=== PATIENT | male | born 1995 | race Caucasian/White ===

== ENCOUNTER 2020-07-23 13:41 | Outpatient (CLI) | payer OTHER, SELFPAY ==
[2020-07-23 14:15] LABS: Basophils Percent Auto 0.4 % (0.2-1.2); Eosinophils Absolute Auto 0.3 K/mm3 (0-0.3); Eosinophils Percent Auto 4.4 % (0-4.4); Hematocrit 44.2 % (42.0-52.0); Hemoglobin 15.2 g/dL (14.0-18.0); Immature Granulocyte Absolute 0.02 K/mm3 (0.00-0.031); Immature Granulocyte Percent A 0.3 % (0-0.5); Lymphocytes Absolute Auto 1.51 K/mm3 (0.9-3.2); Lymphocytes Percent Auto 22.1 % (18.3-44.2); Mean Corpuscular HGB Conc 34.4 g/dl (32-36); Mean Corpuscular Hemoglobin 30.2 pg (26-34); Mean Corpuscular Volume 87.7 fl (80-100); Mean Platelet Volume 10.2 fl (7.4-10.4); Monocytes Absolute Auto 0.3 K/mm3 (0.1-0.6); Neutrophils Absolute Auto 4.6 K/mm3 (1.3-6.7); Neutrophils Percent Auto 67.8 % (45.5-73.1); Platelet Count Result 168 k/mm3 (150-375); Red Blood Count 5.04 M/mm3 (4.6-6.20); Red Cell Distribution Width 12.2 % (11.5-14.5); White Blood Count 6.8 K/mm3 (4.5-10.0)
[2020-07-23 14:27] LABS: Alanine Aminotransferase 23 U/L (4-50); Albumin Level 4.7 g/dL (3.5-5.1); Alkaline Phosphatase 42 U/L (38-126); Anion Gap 6 mmol/L (8-16); Aspartate Amino Transferase 21 U/L (17-59); Bilirubin,Total 1.1 mg/dL (0.2-1.3); Blood Urea Nitrogen 13 mg/dL (9-20); Calcium 9.2 mg/dL (8.4-10.2); Carbon Dioxide 29 mmol/L (22-30); Chloride 104 mmol/L (98-107); Cholesterol 143 mg/dL (0-200); Estimated Glomerular Filt Rate > 60; Glucose 91 mg/dL (75-110); HDL Direct 42 mg/dL; Potassium 3.7 mmol/L (3.4-5.0); Sodium 139 mmol/L (137-145); Triglycerides 69 mg/dL (<150)
[2020-07-23 14:57] LABS: Prostate Specific Antigen 0.4 ng/mL (< OR = 4.0)
[2020-07-23 15:11] LABS: LDL Cholesterol Direct 91 mg/dL
[2020-07-23 16:17] LABS: Free T4 Free Thyroxine 0.99 ng/mL (0.78-2.19)
[2020-07-23 16:43] LABS: Vitamin D 25 Hydroxy < 12.8 ng/mL
[2020-07-27 07:23] LABS: Triiodothyronine T3 Free 3.4 pg/mL (2.3-4.2)
== END 2020-07-23 13:42 | disposition home or self-care (01) ==
PROVIDERS: PCP Family Medicine; Visit Provider Nurse Practitioner Family
DX: Z00.00 Encounter for general adult medical examination without abnormal findings (principal); F41.9 Anxiety disorder, unspecified
CPT/HCPCS: 36415; 80053; 80061; 82306; 84153; 84439; 84443; 84481; 85025

== ENCOUNTER 2021-01-14 14:30 | Emergency (ER) | payer OTHER, SELFPAY ==
--- NOTE | 2021-01-14 14:35 | ED.GENADULT ---
HPI - General Adult General Chief complaint: Chest Pain Stated complaint: Chest Pain,Headache,Diarrhea Time Seen by Provider: 01/14/21 14:35 Source: patient, RN notes reviewed and old records reviewed (lab) Mode of arrival: ambulatory Limitations: no limitations History of Present Illness HPI narrative: 25 yo male presents to the ER with complaints of diarrhea, headache and chest pain. Reports left-sided chest pain that radiates into the left scapular area. Has had nausea, vomiting and diarrhea for the last 3 days. Vomiting a couple times today. Last diarrheal episode was yesterday. Reports a generalized headache. States that he called his PCM and was told to go to the emergency room Onset (ago): day(s) Related Data Home Medications Medication Instructions Recorded Confirmed No Home Medications 01/14/21 01/14/21 Allergies Allergy/AdvReac Type Severity Reaction Status Date / Time No Known Allergies Allergy Verified 01/14/21 15:01 Review of Systems Review of Systems: All systems reviewed & are unremarkable except as noted in HPI and below Constitutional: Constitutional: Reports as per HPI, Denies fever(s) and Reports headache(s) Eyes: Eyes: Reports no additional eye complaints ENT: Reports system reviewed and no additional complaints, except as documented Cardiovascular: Cardiovascular: Reports as per HPI, Reports chest pain, Reports chest pain at rest, Reports chest pain with activity, Reports rapid heart rate and Denies dyspnea Respiratory: Respiratory: Reports no additional respiratory complaints Gastrointestinal: Gastrointestinal: Reports as per HPI, Denies abdominal pain and Reports vomiting Comments: Diarrhea Genitourinary: Genitourinary: Reports no additional male genitourinary complaints Musculoskeletal: Musculoskeletal: Reports no additional musculoskeletal complaints Integumentary/Breasts: Skin/Breast: Reports system reviewed and no additional complaints, except as docu Neurologic: Reports system reviewed and no additional complaints, except as documented Psychiatric: Psychiatric: Reports no additional psychiatric complaints Allergic/Immunologic: Allergic/Immunologic: Reports no additional allergic/immunologic complaints [facility] Past Medical History Medical History (Updated 01/14/21 @ 15:14 by Zuri Strange) Anxiety Surgical History Surgical History (Updated 01/14/21 @ 14:56 by Zuri Strange) Hx of appendectomy 2012 Social History Social History (Updated 01/14/21 @ 14:56 by Zuri Strange) Substance use: current Substance use type: marijuana Gender identity (if verbalized by the patient): Male Comments At the time of my signature, I reviewed and agree with the nursing past medical, surgical, social, and family history. There is no relevant family history pertinent to the patient complaint. Exam Const: General: cooperative, well developed, alert, anxious and uncomfortable Nutritional Appearance: average body habitus Orientation/consciousness: patient oriented x3 Limitations: no limitations HENMT: Head: normal to inspection General nose exam: Normal external nose present Mouth: Yes other (Dry lips) Eyes: General: appearance normal, both eyes and all related structures Neck: Neck: normal visual inspection, full ROM, no lymphadenopathy, no meningeal signs and trachea midline Chest: Chest palpation & inspection: normal inspection of the chest Resp: Effort & Inspection: normal respiratory effort, able to speak in complete sentences and no audible wheezes Cardio: Rate: tachycardic Rhythm: regular rhythm GI: Inspection: normal to inspection GI Palp: No abdominal tenderness Back/Spine/Pelvis: Back: no CVA tenderness Skin: General skin exam: no rashes or lesions noted, dry skin, no erythema and pallor Neuro: General: patient oriented x3 Extrem: General: normal to inspection, full ROM and capillary refill normal Psych: Appearance: grossly normal Mental
[2021-01-14 14:39] VITALS: BP 144/96; PULSE 99; RESP 20; TEMP 37.7; O2SAT 99
--- NOTE | 2021-01-14 15:00 | ECG_ITS ---
Measurements Intervals [place] Rate: 128 P: 76 NH: 129 QRS: 83 QRSD: 93 T: 16 QT: 334 QTc: 488 Interpretive Statements SINUS TACHYCARDIA MINIMAL Q WAVES- ANTEROLAT/INF LEADS BORDERLINE ST ABNORMALITY ANTEROLAT/INF LEADS ABNORMAL ECG Electronically Signed On 01-14-2021 15:02:32 CDT by Shay Wood D.O.
== END 2021-01-14 14:57 | disposition short-term general hospital (02) ==
LOC: EXPTROY 14:33
PROVIDERS: Emergency Provider Nurse Practitioner; PCP Family Medicine
DX: R00.0 Tachycardia, unspecified (principal); R07.9 Chest pain, unspecified
CPT/HCPCS: 93005; 99213; G0463

== ENCOUNTER 2021-01-14 15:12 | Emergency (ER) | payer OTHER, SELFPAY ==
--- NOTE | ~2021-01-14 | XR_ITS ---
EXAMINATION: XR chest 2V 01/14/2021 15:59 INDICATION: Midsternal chest pain, nausea, vomiting and diarrhea. PROCEDURE: 2 view chest COMPARISON: No prior studies for comparison. FINDINGS: The lungs are clear. The cardiomediastinal silhouette is within normal limits. There are no pleural effusions. There is no pneumothorax suspected. IMPRESSION: 1: NO ACUTE CARDIOPULMONARY DISEASE. Reviewed, dictated and finalized at location B.
[2021-01-14 15:38] VITALS: BP 141/105; PULSE 127; RESP 18; TEMP 37; O2SAT 100
--- NOTE | 2021-01-14 15:42 | ECG_ITS ---
Measurements Intervals [employer] Rate: 108 P: CO: 0 QRS: 77 QRSD: 90 T: 24 QT: 374 QTc: 502 Interpretive Statements SINUS TACHYCARDIA NONCONDUCTED PREMATURE ATRIAL COMPLEX MINIMAL Q WAVES- INF/LAT LEADS BORDERLINE ST ABNORMALITY- ANTEROLAT/INF LEADS ABNORMAL ECG Electronically Signed On 01-14-2021 16:10:40 CDT by Shay Wood D.O.
[2021-01-14 16:00] LABS: Basophils Absolute Auto 0.1 K/mm3 (0.0-0.1); Basophils Percent Auto 0.5 % (0.2-1.2); Eosinophils Absolute Auto 0.1 K/mm3 (0-0.3); Eosinophils Percent Auto 1.5 % (0-4.4); Hematocrit 43.5 % (42.0-52.0); Hemoglobin 15.7 g/dL (14.0-18.0); Immature Granulocyte Absolute 0.04 K/mm3 (0.00-0.031); Immature Granulocyte Percent A 0.4 % (0-0.5); Lymphocytes Absolute Auto 1.41 K/mm3 (0.9-3.2); Lymphocytes Percent Auto 14.7 % (18.3-44.2); Mean Corpuscular HGB Conc 36.1 g/dl (32-36); Mean Corpuscular Hemoglobin 30.6 pg (26-34); Mean Corpuscular Volume 84.8 fl (80-100); Mean Platelet Volume 10.1 fl (7.4-10.4); Monocytes Absolute Auto 0.6 K/mm3 (0.1-0.6); Monocytes Percent Auto 5.9 % (2.6-8.5); Neutrophils Absolute Auto 7.4 K/mm3 (1.3-6.7); Platelet Count Result 219 k/mm3 (150-375); Red Blood Count 5.13 M/mm3 (4.6-6.20); Red Cell Distribution Width 11.9 % (11.5-14.5); White Blood Count 9.6 K/mm3 (4.5-10.0)
[2021-01-14 16:11] LABS: Anion Gap 16 mmol/L (8-16); Blood Urea Nitrogen 15 mg/dL (9-20); Calcium 9.7 mg/dL (8.4-10.2); Carbon Dioxide 24 mmol/L (22-30); Chloride 101 mmol/L (98-107); Estimated CRCL calculation 101 ml/min; Estimated Glomerular Filt Rate > 60; Glucose 138 mg/dL (65-110); Potassium 3.3 mmol/L (3.4-5.0); Sodium 141 mmol/L (137-145)
--- NOTE | 2021-01-14 16:11 | ED.CHESTPAIN ---
HPI - Chest Pain General Chief Complaint: Chest Pain Stated Complaint: anxiety/n/v Time Seen by Provider: 01/14/21 15:48 Source: patient Mode of arrival: ambulatory Limitations: no limitations History of Present Illness HPI narrative: Patient is a 25-year-old male complaining of it is my anxiety I know described as chest pain, midsternal, sharp, 8 out of 10, accompanied by nausea and tingling of both hands x2 days. Patient states that he has been feeling anxious for the past few days. Patient denies any shortness of breath, abdominal pain, diaphoresis, fever or chills. Related Data Home Medications Medication Instructions Recorded Confirmed No Home Medications 01/14/21 01/14/21 Allergies Allergy/AdvReac Type Severity Reaction Status Date / Time No Known Allergies Allergy Verified 01/14/21 15:01 Review of Systems Review of Systems: All systems reviewed & are unremarkable except as noted in HPI and below Constitutional: Constitutional: Denies body ache(s), Denies chills, Denies excessive sweating, Denies fatigue, Denies fever(s), Denies headache(s), Denies lethargy, Denies malaise, Denies weakness and Denies weight loss Eyes: Eyes: Denies blurry vision, Denies change in vision and Denies loss of vision ENT: Denies dizziness, Denies ear discharge, Denies headache(s), Denies lip swelling, Denies epistaxis, Denies nasal congestion, Denies neck pain, Denies throat swelling and Denies tongue swelling Cardiovascular: Cardiovascular: Denies diaphoresis, Denies rapid heart rate, Denies edema, Denies irregular heart rhythm, Denies lightheadedness, Denies palpitations, Denies dyspnea and Denies dyspnea on exertion Respiratory: Respiratory: Denies chest congestion, Denies cough, Denies hemoptysis, Denies dyspnea and Denies dyspnea on exertion Gastrointestinal: Gastrointestinal: Denies abdominal pain, Denies melena, Denies hematochezia, Denies diarrhea, Denies nausea, Denies vomiting and Denies hematemesis Musculoskeletal: Musculoskeletal: Denies abnormal gait, Denies deformity, Denies joint swelling, Denies limited range of motion, Denies neck pain and Denies numbness Neurologic: Denies Abnormal speech present, Denies abnormal gait, Denies confusion, Denies dizziness, Denies headache(s), Denies focal weakness, Denies loss of vision, Denies numbness, Denies Other visual disturbances, Denies Sensory deficit (Neuro) and Denies weakness Psychiatric: Psychiatric: Denies confusion, Denies depression, Denies auditory hallucinations, Denies homicidal ideation and Denies suicidal ideation Endocrine: Endocrine: Denies cold intolerance, Denies excessive sweating, Denies fatigue, Denies heat intolerance and Denies palpitations Hematologic/Lymphatic: Hematologic/Lymphatic: Denies easy bleeding and Denies easy bruising Allergic/Immunologic: Allergic/Immunologic: Denies lip swelling, Denies throat swelling and Denies tongue swelling PMFSH Past Medical History Medical History Anxiety Surgical History Surgical History Hx of appendectomy 2012 Social History Social History Substance use: current Substance use type: marijuana Gender identity (if verbalized by the patient): Male Exam Const: General: cooperative, healthy appearing, comfortable, no acute distress, well developed, alert, awake and anxious; No confusion Orientation/consciousness: oriented to person, oriented to place, oriented to time, patient oriented x3 and No confusion Limitations: no limitations HENMT: Head: normal to inspection, normocephalic and atraumatic Ears: hearing grossly normal bilaterally, TM normal on the right and TM normal on the left General nose exam: Normal external nose present, Normal nares present and No nasal discharge present Face and sinus: normal facial exam Mouth: Yes Norm
[2021-01-14] MEDS: ASPIRIN 81 MG CHEWABLE TABLET 324 MG PO (16:15)
[2021-01-14 16:23] LABS: Troponin I < 0.012 ng/mL (0.000-0.034)
[2021-01-14 16:37] LABS: INR 1.2; Prothrombin Time 15.1 Seconds (11.1-14.7)
[2021-01-14] MEDS: SODIUM CHLORIDE 0.9% IV 1,000 ML 999 ML IV CONT (17:00)
[2021-01-14] MEDS: LORazepam (*CRX) 1 MG TABLET PO (17:01)
[2021-01-14 17:19] VITALS: BP 158/86; PULSE 90; RESP 18; O2SAT 97
[2021-01-14 17:26] LABS: D Dimer 0.27 ug/mL (<0.48)
[2021-01-14] MEDS: POTASSIUM CHLORIDE 20 MEQ PACKET (FOR LIQUID) PO (18:19)
[2021-01-14 18:24] VITALS: BP 145/86; PULSE 98; RESP 16; O2SAT 100
== END 2021-01-14 18:25 | disposition home or self-care (01) ==
PROVIDERS: Emergency Provider Emergency Medicine; PCP Family Medicine
DX: R07.89 Other chest pain (principal); F41.9 Anxiety disorder, unspecified; R00.0 Tachycardia, unspecified; I49.1 Atrial premature depolarization; R94.31 Abnormal electrocardiogram [ECG] [EKG]
CPT/HCPCS: 36415; 71046; 80048; 84484; 85025; 85380; 85610; 85730; 93005; 96360; 99213; 99284; A9270; G0463; J7030

== ENCOUNTER 2021-01-16 14:38 | Emergency (ER) | payer OTHER, SELFPAY ==
[2021-01-16 14:44] VITALS: BP 150/91; PULSE 115; RESP 18; TEMP 37.1; O2SAT 98
--- NOTE | 2021-01-16 14:52 | ED.ANXIETY ---
HPI - Anxiety General Chief Complaint: Anxiety Stated Complaint: anxiety Time Seen by Provider: 01/16/21 14:52 Source: patient Mode of arrival: ambulatory Limitations: no limitations History of Present Illness HPI narrative: Patient is a 25-year-old male complaining of recurrence of his anxiety attack, accompanied by nausea and vomiting. I saw the patient here 2 days ago for the same complaint, was given Ativan which resolved the symptoms. Patient states that he has an appointment this Sunday with his doctor for his anxiety. Patient states that he has been in a lot of stress lately with his grandfather being sick. Patient is currently not on any medication for his anxiety. Patient denies any suicidal or homicidal thoughts. Related Data Allergies Allergy/AdvReac Type Severity Reaction Status Date / Time No Known Allergies Allergy Verified 01/14/21 15:01 Review of Systems Review of Systems: All systems reviewed & are unremarkable except as noted in HPI and below Constitutional: Constitutional: Denies body ache(s), Denies chills, Denies excessive sweating, Denies fatigue, Denies fever(s), Denies headache(s), Denies lethargy, Denies malaise, Denies weakness and Denies weight loss Eyes: Eyes: Denies blurry vision, Denies change in vision and Denies loss of vision ENT: Denies dizziness, Denies ear discharge, Denies headache(s), Denies lip swelling, Denies epistaxis, Denies nasal congestion, Denies neck pain, Denies throat swelling and Denies tongue swelling Cardiovascular: Cardiovascular: Denies chest pain, Denies chest pain at rest, Denies chest pain with activity, Denies diaphoresis, Denies rapid heart rate, Denies edema, Denies irregular heart rhythm, Denies lightheadedness, Denies palpitations, Denies dyspnea and Denies dyspnea on exertion Respiratory: Respiratory: Denies chest congestion, Denies cough, Denies hemoptysis, Denies dyspnea and Denies dyspnea on exertion Gastrointestinal: Gastrointestinal: Denies abdominal pain, Denies melena, Denies hematochezia, Denies diarrhea, Denies nausea, Denies vomiting and Denies hematemesis Musculoskeletal: Musculoskeletal: Denies abnormal gait, Denies deformity, Denies joint swelling, Denies limited range of motion, Denies neck pain and Denies numbness Neurologic: Denies Abnormal speech present, Denies abnormal gait, Denies confusion, Denies dizziness, Denies headache(s), Denies focal weakness, Denies loss of vision, Denies numbness, Denies Other visual disturbances, Denies Sensory deficit (Neuro) and Denies weakness Psychiatric: Psychiatric: Denies confusion, Denies depression, Denies auditory hallucinations, Denies homicidal ideation and Denies suicidal ideation Endocrine: Endocrine: Denies cold intolerance, Denies excessive sweating, Denies fatigue, Denies heat intolerance and Denies palpitations Hematologic/Lymphatic: Hematologic/Lymphatic: Denies easy bleeding and Denies easy bruising Allergic/Immunologic: Allergic/Immunologic: Denies lip swelling, Denies throat swelling and Denies tongue swelling PMFSH Past Medical History Medical History Anxiety Surgical History Surgical History Hx of appendectomy 2011 Social History Social History Substance use: current Substance use type: does not use Gender identity (if verbalized by the patient): Male Exam Const: General: cooperative, healthy appearing, comfortable, no acute distress, well developed, alert and awake; No confusion Orientation/consciousness: oriented to person, oriented to place, oriented to time, patient oriented x3 and No confusion Limitations: no limitations Other: Anxious HENMT: Head: normal to inspection, normocephalic and atraumatic Ears: hearing grossly normal bilaterally, TM normal on the right and TM normal on the left General nose
[2021-01-16] MEDS: PROMETHAZINE HCL 25 MG/ML AMPUL IM (15:23)
[2021-01-16] MEDS: LORazepam (*CRX) 1 MG TABLET PO (15:24)
[2021-01-16 15:41] VITALS: BP 120/69; PULSE 99; RESP 14; O2SAT 98
[2021-01-16 16:55] VITALS: BP 112/51; PULSE 82; RESP 14; TEMP 36.5; O2SAT 100
== END 2021-01-16 16:56 | disposition home or self-care (01) ==
PROVIDERS: Emergency Provider Emergency Medicine; PCP Family Medicine
DX: F41.9 Anxiety disorder, unspecified (principal)
CPT/HCPCS: 96372; 99283; A9270; J2550

== ENCOUNTER 2021-12-19 15:44 | Emergency (ER) | payer OTHER, SELFPAY ==
--- NOTE | ~2021-12-19 | CT_ITS ---
EXAMINATION: CT abdomen pelvis wo con DATE: 12/19/2021 17:28 INDICATION: Flank pain, nausea and vomiting TECHNIQUE: Computed tomography (CT) of the abdomen and pelvis was performed without intravenous contr ast. Automated exposure control and iterative reconstruction technique were employed. The dose-length product was 217.07 mGy-cm. COMPARISON: 12/14/2018 FINDINGS: Lung bases are clear. Heart size is normal. No pericardial or pleural effusion. Liver, gallbladder, s pleen, pancreas, bilateral adrenal glands and kidneys are normal. Decompressed bladder is normal. No evident urolithiasis in the kidneys, ureters or bladder. No bowel obstruction. There are few scattere d colonic diverticula without adjacent inflammatory change to suggest diverticulitis. The appendix is not visualized. No pericecal inflammatory change to suggest acute appendicitis. No free intraperiton eal gas or fluid. No pathologically enlarged abdominal or pelvic lymphadenopathy. Unchanged small scl erotic bone island at the right pubic body. Bones are otherwise unremarkable. IMPRESSION: 1. No acute intra-abdominal/pelvic process. Reviewed, dictated and finalized at location A.
[2021-12-19 15:52] VITALS: BP 139/76; PULSE 117; RESP 18; TEMP 37.1; O2SAT 100
[2021-12-19 16:05] LABS: Hematocrit 40.7 % (42.0-52.0); Mean Corpuscular HGB Conc 34.4 g/dl (32-36); Mean Corpuscular Hemoglobin 29.7 pg (26-34); Mean Corpuscular Volume 86.2 fl (80-100); Mean Platelet Volume 10.8 fl (7.4-10.4); Platelet Count Result 212 k/mm3 (150-375); Red Blood Count 4.72 M/mm3 (4.6-6.20); Red Cell Distribution Width 12.7 % (11.5-14.5); White Blood Count 7.6 K/mm3 (4.5-10.0)
[2021-12-19 16:18] LABS: Alanine Aminotransferase 20 U/L (6-50); Alkaline Phosphatase 48 U/L (38-126); Anion Gap 12 mmol/L (8-16); Aspartate Amino Transferase 20 U/L (17-59); Bilirubin,Total 0.8 mg/dL (0.2-1.3); Blood Urea Nitrogen 8 mg/dL (9-20); Calcium 9.6 mg/dL (8.4-10.2); Carbon Dioxide 24 mmol/L (22-30); Chloride 102 mmol/L (98-107); Estimated CRCL calculation 109 ml/min; Estimated Glomerular Filt Rate > 60; Glucose 153 mg/dL (65-110); Lipase 55 U/L (23-300); Potassium 3.9 mmol/L (3.4-5.0); Sodium 138 mmol/L (137-145)
[2021-12-19 16:44] LABS: Platelet Estimate Adequate (Adequate)
--- NOTE | 2021-12-19 17:10 | ED.GENADULT ---
HPI - General Adult General Chief complaint: Nausea/Vomiting/Diarrhea Stated complaint: Vomiting, Bilateral Back Pain Time Seen by Provider: 12/19/21 16:34 History of Present Illness HPI narrative: This is a 26-year-old male with history of kidney stones presenting to ED with sudden onset of nausea and vomiting. Patient has had multiple episodes of nonbloody nonbilious vomiting since 4:00 p.m. this morning. He also notes that he has had some pain on urination. Denies diarrhea, fever, chills, hematuria, chest pain or difficulty breathing. The patient's flank/back pain started in his lower back and radiates down to his back of his legs. it is described as sore. It comes and goes intermittently. There are no exacerbating factors. It is worse with movement improves with rest. 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 Under that time he notes he was sweating profusely and did not drink much fluid. 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 Related Data Allergies Allergy/AdvReac Type Severity Reaction Status Date / Time No Known Allergies Allergy Verified 01/14/21 15:01 Review of Systems Review of Systems: CONSTITUTIONAL: Denies night sweats. EYES: No eye pain ENT: Denies rhinorrhea CARDIOVASCULAR: Denies palpitations RESPIRATORY: Denies hemoptysis GASTROINTESTINAL: Denies hematemesis GENITOURINARY: Denies hematuria. SKIN: Denies rash MUSCULOSKELETAL: Denies myalgia. NEUROLOGIC: Denies weakness. PSYCHIATRIC: Denies delusions PMFSH Past Medical History Medical History Anxiety Surgical History Surgical History Hx of appendectomy 2011 Social History Social History Substance use: current Substance use type: does not use Gender identity (if verbalized by the patient): Male Exam Narrative: APPEARANCE: No apparent distress. Head atraumatic. EYES: PERRLA/EOMI, NOSE: Normal no drainage NECK: Supple, Trachea midline RESPIRATORY: CTAB, No increased work of breathing. CARDIOVASCULAR: S1S2 appreciated ABDOMINAL: Soft, nontender, nondistended, no guarding or rebound. Testicle exam:revealed no overlying skin changes. No tenderness. Back exam: no CVA tenderness, no overlying skin changes. No tenderness to palpation MUSCULOSKELETAl: No obvious deformities, NEURO: Alert. Moving 4/4 extremities SKIN:: Warm, dry. Normal color PSYCHIATRIC: Normal affect Course Vital Signs Vital signs: Vital Signs Temperature 98.8 F 12/19/21 15:52 Pulse Rate 117 H 12/19/21 15:52 Respiratory Rate 18 12/19/21 15:52 Blood Pressure 139/76 12/19/21 15:52 Pulse Oximetry 100 12/19/21 15:52 Oxygen Delivery Room Air 12/19/21 15:52 Temperature 98.8 F 12/19/21 15:52 Pulse Rate 117 H 12/19/21 15:52 Respiratory Rate 18 12/19/21 15:52 Blood Pressure 139/76 12/19/21 15:52 Pulse Oximetry 100 12/19/21 15:52 Oxygen Delivery Room Air 12/19/21 15:52 Medical Decision Making [facility] Narrative Medical decision making narrative: Is a 26-year-old male presenting ED with 1 day of nausea and vomiting. Patient has a history of kidney stones. Additionally he has been working in the heat for the last 2 days. Differential includes kidney stones, gastroenteritis, dehydration. CT abdomen pelvis without contrast has been ordered. Patient will be given 3 L of fluid, [place] and Pepcid for symptom control. Lab work has been ordered including a urinalysis. Laboratory studies showed a normal CBC and BMP. Urinalysis was positive for ketones and bilirubin but no evidence of infection. CT abdomen pelvis did not reveal any kidney stones or any inch in her abdominal pathology.
[2021-12-19] MEDS: SODIUM CHLORIDE 0.9% IV 3,000 ML 999 ML IV CONT (18:07)
[2021-12-19] MEDS: HYDROcodone/acetaminophen (*CRX) 5-325 MG TABLET 2 TAB PO (18:07)
[2021-12-19] MEDS: FAMOTIDINE 20 MG/2 ML VIAL IV PUSH (18:07)
[2021-12-19] MEDS: ONDANSETRON INJ 4 MG/2 ML VIAL IV PUSH (18:07)
[2021-12-19 18:52] LABS: Appearance Urine Clear (Clear); Bilirubin Urine 1+ (Negative); Color Urine Yellow (Yellow); Glucose Urine UA Negative (Negative); Ketones Urine 4+ mg/dL (Negative); Leukocyte Esterase Ur Negative LEU/UL (Negative); Nitrate Urine Negative (Negative); Protein Urine 1+ mg/dL (Negative); Specific Grav Ur 1.025 (1.001-1.035); Urobilinogen Urine 0.2 mg/dL (<2.0)
[2021-12-19 18:53] LABS: Add Urine Microscopic? YES; Blood Urine Trace-Intact (Negative)
[2021-12-19 18:58] LABS: Bacteria Urine Trace /hpf; Mucus Urine Heavy /lpf; Squamous Epithelial Cell Urine Rare /hpf (Few); WBC Urine 0-3 /hpf
[2021-12-19 19:20] VITALS: BP 127/78; PULSE 98; RESP 18; TEMP 36.8; O2SAT 100
[2021-12-20 12:18] LABS: Band Neutrophils Percent 23 % (0-6); Lymphocytes Percent Manual 4 % (18-44); Monocytes Absolute Manual 0.53 K/mm3 (0.1-0.90); Monocytes Percent Manual 7 % (3-9); Neutrophils Absolute Manual 6.76 K/mm3 (1.3-6.7); Neutrophils Percent Manual 66 % (46-73); Total Cells Counted 100
[2021-12-20 12:19] LABS: Schistocytes None Seen (NORMAL)
== END 2021-12-19 19:32 | disposition home or self-care (01) ==
PROVIDERS: Nurse Practitioner Family; Emergency Provider Emergency Medicine; PCP Family Medicine
DX: R11.2 Nausea with vomiting, unspecified (principal); E86.0 Dehydration; T67.2XXA Heat cramp, initial encounter; Z87.442 Personal history of urinary calculi
CPT/HCPCS: 36415; 74176; 80053; 81001; 83690; 85025; 96361; 96374; 96375; 99284; A9270; J2405; J7030

== ENCOUNTER 2022-04-04 11:14 | Emergency (ER) | payer OTHER, SELFPAY ==
--- NOTE | ~2022-04-04 | US_ITS ---
EXAMINATION: US scrotum doppler DATE: 04/04/2022 12:42 INDICATION: Left scrotal pain. TECHNIQUE: Grayscale and Doppler ultrasound images of the testes were obtained. COMPARISON: None. FINDINGS: The right testis measures 4.9 x 2.5 x 3.1 cm. The left testis measures 4.7 x 2.2 x 3.0 cm. There is normal vascular flow to both testes. The right epididymis is normal with normal vascular jodi w. The left epididymis is normal with normal vascular flow. There is no varicocele or hydrocele. IMPRESSION: 1. Normal testes. Reviewed, dictated and finalized at location A. /ECG TECHNICIAN IMPRESSION: 1. Normal testes.
[2022-04-04 11:15] VITALS: BP 153/91; PULSE 86; RESP 16; TEMP 37.2; O2SAT 100
--- NOTE | 2022-04-04 11:35 | ED.MALEGU ---
HPI - Male Genitourinary General Chief complaint: Urogenital-Male Stated complaint: SWOLLEN L SCROTUM Time Seen by Provider: 04/04/22 11:28 History of Present Illness HPI Narrative: 27-year-old male presents to the emergency room for evaluation of left testicular pain that began last night. Patient states 1 month ago he was carrying a load of pizza boxes when a door opened and the doorknob struck him in the left testicle. Patient states he experienced pain for several days but resolved. Pain yesterday began suddenly with no new injury or trauma. States pain is improved when he lifts his testicle up. Denies any dysuria or abdominal pain. Denies any concerns for STIs at this time. Afebrile Related Data Allergies Allergy/AdvReac Type Severity Reaction Status Date / Time No Known Allergies Allergy Verified 01/14/21 15:01 Review of Systems Review of Systems: CONSTITUTIONAL: Denies fever, chills, or sweats. EYES: Denies visual changes, redness, or discharge. ENT: Denies rhinorrhea, congestion, sore throat, or otalgia. CARDIOVASCULAR: Denies chest pain, palpitations, or edema. RESPIRATORY: Denies cough or dyspnea. GASTROINTESTINAL: Denies abdominal pain, nausea, vomiting, or diarrhea. GENITOURINARY: Denies dysuria or hematuria. SKIN: Denies rash or itching. MUSCULOSKELETAL: Denies back pain, joint pain, or myalgia. NEUROLOGIC: Denies headache, numbness, dizziness, or weakness. PSYCHIATRIC: Denies anxiety or depression. PMFSH Past Medical History Medical History Anxiety Surgical History Surgical History Hx of appendectomy 2012 Social History Social History Substance use: current Substance use type: does not use Gender identity (if verbalized by the patient): Male Exam Narrative: GENERAL: Well-appearing, well-nourished, no physical limitations, and in no acute distress. HEAD: Normocephalic, atraumatic. EYES: Conjunctivae normal, PERRLA and EOMI. CHEST: Clear to auscultation. No respiratory distress. No wheezes rales or rhonchi. HEART: Regular rate and rhythm. No murmur heard. Normal peripheral pulses. ABDOMEN: Soft, nontender, nondistended, normal active bowel sounds. : Normal external male exam. Cremaster reflex present bilaterally. Positive Prehn sign on the left testicle. No soft tissue swelling or ecchymosis noted. BACK: No CVA tenderness EXTREMITIES: Normal range of motion. No edema. No clubbing or cyanosis SKIN: Warm, dry, no rash. No noted wounds NEURO: No focal deficits. Alert and oriented x3. MAEW. CN's II-XI intact bilaterally, normal gait PSYCH: Cooperative. Normal mood and affect. Course Vital Signs Vital signs: Vital Signs Temperature 37.2 C 04/04/22 11:15 Pulse Rate 86 04/04/22 11:15 Respiratory Rate 16 04/04/22 11:15 Blood Pressure 153/91 H 04/04/22 11:15 Pulse Oximetry 100 04/04/22 11:15 Temperature 37.2 C 04/04/22 11:15 Pulse Rate 86 04/04/22 11:15 Respiratory Rate 16 04/04/22 11:15 Blood Pressure 153/91 H 04/04/22 11:15 Pulse Oximetry 100 04/04/22 11:15 MDM - Male Genitourinary Lab Data Labs: Lab Results 04/04/22 Range/Units 13:41 Urine Color Yellow (Yellow) Urine Appearance Clear (Clear) Urine pH 7.0 (5.0-9.0) Ur Specific [place] 1.025 (1.001-1.035) Urine Protein Negative (Negative) mg/dL Urine Glucose (UA) Negative (Negative) mg/dL Urine Ketones 1+ H (Negative) mg/dL Ur Blood (Man) Negative (Negative) Urine Nitrate Negative (Negative) Urine Bilirubin Negative (Negative) Urine Urobilinogen 0.2 (<2.0) mg/dL Leukocyte Esterase Rfl Negative (Negative) LASHON/UL Urine RBC 0-2 (0-2) /hpf Urine WBC 0-3 /hpf Ur Squamous Epith Cells Rare (Few) /hpf Urine Bacteria Trace /hpf Urine Mucus Rare /lpf Discharge
--- NOTE | 2022-04-04 11:56 | PC.NURSE ---
Patient states about a month ago he hit himself in the scrotum with a door and had some pain and swelling that lasted approximately a week, but went away on its own without medical intervention. Patient states last night he began having swelling and pain to the left testes. Patient denies any injury before the pain and swelling. Patient also complains of left thigh tingling .
[2022-04-04 14:01] LABS: Bacteria Urine Trace /hpf; Mucus Urine Rare /lpf; RBC Urine 0-2 /hpf (0-2); Squamous Epithelial Cell Urine Rare /hpf (Few); WBC Urine 0-3 /hpf
[2022-04-04 14:04] LABS: Color Urine Yellow (Yellow)
[2022-04-04 14:05] LABS: Add Urine Microscopic? YES; Appearance Urine Clear (Clear); Bilirubin Urine Negative (Negative); Blood Urine Negative (Negative); Glucose Urine UA Negative (Negative); Ketones Urine 1+ mg/dL (Negative); Leukocyte Esterase Ur Negative LEU/UL (Negative); Nitrate Urine Negative (Negative); Protein Urine Negative (Negative); Specific Grav Ur 1.025 (1.001-1.035); Urobilinogen Urine 0.2 mg/dL (<2.0)
== END 2022-04-04 14:57 | disposition home or self-care (01) ==
PROVIDERS: Emergency Provider Nurse Practitioner Family; PCP Family Medicine
DX: N50.812 Left testicular pain (principal); F41.9 Anxiety disorder, unspecified
CPT/HCPCS: 76870; 81001; 93976; 99284

== ENCOUNTER 2022-12-02 11:45 | Emergency (ER) | payer OTHER, SELFPAY ==
[2022-12-02 12:15] VITALS: BP 131/80; PULSE 55; RESP 16; TEMP 37.2; O2SAT 99
--- NOTE | 2022-12-02 12:40 | ED.SKABFB ---
HPI - Skin/Abscess/Foreign Bdy General Chief complaint: Skin/Abscess/Foreign Body Stated complaint: Abscess on Buttocks Time Seen by Provider: 12/02/22 12:20 Source: patient Mode of arrival: ambulatory Limitations: no limitations History of Present Illness HPI narrative: Ricco is a 27-year-old male patient presenting to the clinic today with complaints of a boil near his rectum. He reports that he has had this before and he has been given antibiotics and it cleared up. He reports it has never been lanced. States that is been going on for approximately 3-4 days. He denies any fever or chills. He has been using warm compresses Related Data Allergies Allergy/AdvReac Type Severity Reaction Status Date / Time No Known Allergies Allergy Verified 12/02/22 12:08 Review of Systems Review of Systems: Pertinent positives per HPI. Patient denies any fever, chills, rash, headache, visual changes, dizziness, cough, runny nose, sore throat, shortness of breath, chest pain, palpitations, nausea, vomiting, diarrhea, constipation, abdominal pain, or any urinary issues. [facility] Past Medical History Medical History Anxiety Surgical History Surgical History Hx of appendectomy 2012 Social History Social History Substance use: current Substance use type: does not use Gender identity (if verbalized by the patient): Male Comments At the time of my signature, I reviewed and agree with the nursing past medical, surgical, social, and family history. There is no relevant family history pertinent to the patient complaint. Exam Narrative: General: Well-developed, well nourished, in no apparent distress Head: Normocephalic, atraumatic. Cardio: Regular rate and rhythm, s1 and s2 normal, no murmur appreciated. Resp: Clear to auscultation bilaterally, no rhonchi, rales, wheezing or rubs. Abdomen: Soft, pliable, bowel sounds present in all quadrants, non-tender to palpation, no CVAT tenderness. Rectum: Rectum without masses or external hemorrhoids. Small perirectal boil noted at 9:00 a.m. of the rectum, tender to palpation without induration, mild redness Course Course Emergency Course: Portions of this record may have been created with voice recognition software. Level of Care: Express Care Visit Vital Signs Vital signs: Vital Signs Temperature 37.2 C 12/02/22 12:15 Pulse Rate 55 L 12/02/22 12:15 Respiratory Rate 16 12/02/22 12:15 Blood Pressure 131/80 12/02/22 12:15 Pulse Oximetry 99 12/02/22 12:15 Oxygen Delivery Room Air 12/02/22 12:15 Temperature 37.2 C 12/02/22 12:15 Pulse Rate 55 L 12/02/22 12:15 Respiratory Rate 16 12/02/22 12:15 Blood Pressure 131/80 12/02/22 12:15 Pulse Oximetry 99 12/02/22 12:15 Oxygen Delivery Room Air 12/02/22 12:15 Vital signs reviewed MDM - Skin/Abscess/Foreign Bdy MDM Narrative Medical decision making narrative: At the time of visit patient is resting on the exam table. At the present time I do not feel as though this perirectal boil will need abscessed in the clinic today. Prescription for Augmentin was sent to the pharmacy and recommend warm compresses to the area. Supportive measures were discussed with the patient he voiced understanding discharge instructions and agrees to treatment plan. Differential Diagnosis Differential diagnosis: Likely abscess of skin or subcutaneous tissue, cellulitis, insect bites, impetigo and other (A boil, impetigo,) Discharge Plan Discharge Clinical Impression: Abscess, perirectal Patient Disposition: Home, Self-Care Condition: Stable Instructions: Antibiotic Form Additional Instructions: Apply warm compresses to the affected area for 15 minutes at a time 4 times daily May take Tylenol/Motrin as needed for pa
== END 2022-12-02 12:52 | disposition home or self-care (01) ==
PROVIDERS: Emergency Provider Nurse Practitioner Family; PCP Family Medicine
DX: K61.1 Rectal abscess (principal)
CPT/HCPCS: 99213; G0463

== ENCOUNTER 2023-02-10 23:02 | Emergency (ER) | payer OTHER, SELFPAY ==
--- NOTE | ~2023-02-10 | US_ITS ---
EXAMINATION: US scrotum doppler DATE: 02/11/2023 01:26 INDICATION: Right testicular pain. TECHNIQUE: Grayscale and Doppler ultrasound images of the testes were obtained. COMPARISON: Ultrasound 04/04/2022 FINDINGS: The right testis measures 4.1 x 2.5 x 3.0 cm. The left testis measures 4.1 x 2.3 x 2.8 cm. There is normal vascular flow to both testes. The right epididymis is normal with normal vascular jodi w. The left epididymis is normal with normal vascular flow. There is no varicocele or hydrocele. IMPRESSION: 1. Normal testes. Reviewed, dictated and finalized at location E. HALMIC LENS INSPECTOR IMPRESSION: 1. Normal testes.
[2023-02-10 23:16] VITALS: BP 133/81; PULSE 70; RESP 18; TEMP 36.8; O2SAT 100
--- NOTE | 2023-02-11 01:18 | ED.GENADULT ---
HPI - General Adult General Chief complaint: Urogenital-Male <Frederick Caban PA-C - Last Filed: 02/11/23 03:22> Stated complaint: Right testicle pain <ALLYSON Iverson Last Filed: 02/11/23 03:22> Time Seen by Provider: 02/11/23 00:23 <Frederick Caban PA-C - Last Filed: 02/11/23 03:22> Source: patient <ALLYSON Iverson Last Filed: 02/11/23 03:22> Mode of arrival: ambulatory <Frederick Caban PA-C - Last Filed: 02/11/23 03:22> Limitations: no limitations <ALLYSON Iverson Last Filed: 02/11/23 03:22> History of Present Illness HPI narrative: This is a 27-year-old male who presents to the ED with chief complaint of right-sided testicle pain and swelling for the past 2 days. States the pain started abruptly after he woke up and has not gone away. Denies injury. Denies any concern for STDs. Denies urinary symptoms. When asked if he has ever had anything like this before he denies buttock grandmother who is here with him reports he was here for something similar this year. Per chart review patient was here for left testicular pain on April 04, 2022 he was given antibiotics for epididymitis. <Frederick Caban PA-C - Last Filed: 02/11/23 03:22> Related Data Allergies/adverse reactions: Allergies Allergy/AdvReac Type Severity Reaction Status Date / Time No Known Allergies Allergy Verified 12/02/22 12:08 <Frederick Caban PA-C - Last Filed: 02/11/23 03:22> Review of Systems Review of Systems: All systems as dictated in HPI <Frederick Caban PA-C - Last Filed: 02/11/23 03:22> [facility] Past Medical History Medical History: Medical History Anxiety <ALLYSON Iverson Last Filed: 02/11/23 03:22> Surgical History Surgical History: Surgical History Hx of appendectomy 2011 <Frederick Caban PA-C - Last Filed: 02/11/23 03:22> Social History Social History: Social History Substance use: current Substance use type: does not use Gender identity (if verbalized by the patient): Male <Frederick Caban PA-C - Last Filed: 02/11/23 03:22> Exam Narrative: GENERAL: Well-appearing, well-nourished, and in no acute distress. HEAD: Normocephalic, atraumatic. EYES: PERRLA and EOMI. ENT: Nares clear, no rhinorrhea or epistaxis. Mucous membranes moist. Oropharynx without tonsillar hypertrophy exudate or other lesions. NECK: Supple. No adenopathy or masses. CHEST: No respiratory distress. Clear to auscultation. No wheezes rales or rhonchi HEART: Regular rate and rhythm. No murmur heard. Normal peripheral pulses. ABDOMEN: Soft, nontender, nondistended, normal active bowel sounds. MSK: Normal range of motion. No edema. SKIN: Warm, dry, no rash. NEURO: Alert and oriented x3. No focal deficits. PSYCH: Normal mood and affect. : Normal external male exam. No testicular swelling noted. No inguinal hernia noted. No penile discharge. Mild testicular tenderness. No skin changes <Frederick Caban PA-C - Last Filed: 02/11/23 03:22> Course GEAR CUTTING MACHINE SET UP OPERATOR/PA Physician Supervision For this patient encounter, I reviewed the GEAR CUTTING MACHINE SET UP OPERATOR or PA documentation, treatment plan, and medical decision making and I had [id number] time with this patient. I performed all aspects of the MDM as documented. <Hiren Lomeli DO - Last Filed: 02/11/23 04:54> Vital Signs Vital signs: Vital Signs Temperature 98.2 F 02/10/23 23:16 Pulse Rate 70 02/10/23 23:16 Respiratory Rate 18 02/10/23 23:16 Blood Pressure 133/81 02/10/23 23:16 Pulse Oximetry 100 02/10/23 23:16 Oxygen Delivery Room Air 02/10/23 23:16 Temperature 98.2 F 02/10/23 23:16 Pulse Rate 69 02/11/23 04:47 Respiratory Rate 18 02/11/23 04:47 Blood Pressure 119/84 02/11/23 04:47 Pulse Oximetry 99 02/11
[2023-02-11] MEDS: KETOROLAC 30 MG/ML VIAL (*BKC) IM (01:23)
[2023-02-11 01:25] VITALS: BP 154/96; PULSE 87; RESP 15; O2SAT 100
[2023-02-11 02:04] LABS: Appearance Urine Clear (Clear); Bilirubin Urine Negative (Negative); Blood Urine Negative (Negative); Color Urine Yellow (Yellow); Glucose Urine UA Negative (Negative); Ketones Urine Negative (Negative); Leukocyte Esterase Ur Negative LEU/UL (Negative); Nitrate Urine Negative (Negative); Protein Urine Negative (Negative); Specific Grav Ur 1.018 (1.001-1.035); Urobilinogen Urine 0.2 mg/dL (<2.0); pH Urine 6.5 (5.0-9.0)
[2023-02-11 02:24] LABS: Add Urine Microscopic? NO
[2023-02-11 04:47] VITALS: BP 119/84; PULSE 69; RESP 18; O2SAT 99
== END 2023-02-11 04:50 | disposition left against medical advice (07) ==
PROVIDERS: Physician Assistant; Emergency Provider Student in an Organized Health Care Education/Training Program; PCP Family Medicine
DX: N50.811 Right testicular pain (principal)
CPT/HCPCS: 76870; 81003; 93976; 96372; 99284; J1885

== ENCOUNTER 2023-02-13 12:02 | Emergency (ER) | payer OTHER, SELFPAY ==
--- NOTE | ~2023-02-13 | CT_ITS ---
EXAMINATION: CT abdomen pelvis w con DATE: 02/13/2023 15:15 INDICATION: Abdomen pain TECHNIQUE: Computed tomography (CT) of the abdomen and pelvis was performed with 100 cc intravenous c ontrast. The dose-length product was 396.87 mGy-cm. Automated exposure control and iterative reconstr uction technique were employed. COMPARISON: CT dated 12/19/2021. FINDINGS: Lung bases are unremarkable. Heart size normal. No significant pleural or pericardial effus ion. The liver, spleen, pancreas, adrenal glands and kidneys are unremarkable. Gallbladder is present . No significant vascular abnormality. No lymphadenopathy. No free air or free fluid. Colonic diverti culosis without evidence for diverticulitis. No acute osseous abnormality. IMPRESSION: 1. No acute abdominal abnormality. Reviewed, dictated and finalized at location L. CERY CLERK
[2023-02-13 12:43] VITALS: BP 133/83; PULSE 80; RESP 16; TEMP 37; O2SAT 100
[2023-02-13 14:11] LABS: Basophils Percent Auto 0.5 % (0.2-1.2); Eosinophils Absolute Auto 0.3 K/mm3 (0-0.3); Eosinophils Percent Auto 4.1 % (0-4.4); Hematocrit 40.8 % (42.0-52.0); Hemoglobin 13.7 g/dL (14.0-18.0); Immature Granulocyte Absolute 0.03 K/mm3 (0.00-0.031); Immature Granulocyte Percent A 0.4 % (0-0.5); Lymphocytes Absolute Auto 2.08 K/mm3 (0.9-3.2); Lymphocytes Percent Auto 25.8 % (18.3-44.2); Mean Corpuscular HGB Conc 33.6 g/dl (32-36); Mean Corpuscular Hemoglobin 29.4 pg (26-34); Mean Corpuscular Volume 87.6 fl (80-100); Mean Platelet Volume 11.1 fl (7.4-10.4); Monocytes Absolute Auto 0.5 K/mm3 (0.1-0.6); Monocytes Percent Auto 6.7 % (2.6-8.5); Neutrophils Percent Auto 62.5 % (45.5-73.1); Platelet Count Result 243 k/mm3 (150-375); Red Blood Count 4.66 M/mm3 (4.6-6.20); Red Cell Distribution Width 12.7 % (11.5-14.5); White Blood Count 8.1 K/mm3 (4.5-10.0)
[2023-02-13 14:20] LABS: Appearance Urine Turbid (Clear); Bacteria Urine None Seen /hpf; Bilirubin Urine Negative (Negative); Blood Urine Negative (Negative); Color Urine Dark Yellow (Yellow); Glucose Urine UA Negative (Negative); Ketones Urine Trace mg/dL (Negative); Leukocyte Esterase Ur Negative LEU/UL (Negative); Nitrate Urine Negative (Negative); Non Pathogenic Casts 0-2; Protein Urine Trace mg/dL (Negative); RBC Urine 0-2 /hpf (0-2); Specific Grav Ur 1.026 (1.001-1.035); Squamous Epithelial Cell Urine Occasional /hpf (Few); WBC Urine 0-5 /hpf; pH Urine 7.5 (5.0-9.0)
[2023-02-13 14:23] LABS: Alanine Aminotransferase 23 U/L (6-50); Albumin Level 4.5 g/dL (3.5-5.1); Alkaline Phosphatase 40 U/L (38-126); Anion Gap 8 mmol/L (8-16); Aspartate Amino Transferase 21 U/L (17-59); Bilirubin,Total 0.6 mg/dL (0.2-1.3); Blood Urea Nitrogen 14 mg/dL (9-20); Calcium 9.1 mg/dL (8.4-10.2); Carbon Dioxide 28 mmol/L (22-30); Chloride 103 mmol/L (98-107); Estimated CRCL calculation 130 ml/min; Estimated Glomerular Filt Rate > 60; Glucose 93 mg/dL (65-110); Lipase 496 U/L (23-300); Potassium 3.8 mmol/L (3.4-5.0); Sodium 139 mmol/L (137-145)
[2023-02-13 14:24] LABS: Add Urine Microscopic? YES
[2023-02-13] MEDS: SODIUM CHLORIDE 0.9% IV 1,000 ML 999 ML IV CONT (15:59)
[2023-02-13] MEDS: KETOROLAC 15 MG/ML VIAL (*BKC) IV PUSH (16:00)
--- NOTE | 2023-02-13 16:02 | ED.GENADULT ---
HPI - General Adult General Chief complaint: Urogenital-Male Stated complaint: abd pain Time Seen by Provider: 02/13/23 14:53 History of Present Illness HPI narrative: 27-year-old male presenting to the emergency department for evaluation of right lower quadrant abdominal pain. Patient reports the pain has been ongoing for the last few days. Patient was seen in the emergency department few days ago and had a negative scrotal ultrasound. Patient did have follow-up with primary care physician as referred back to the emergency department for further workup. Patient denies any associated nausea or vomiting at this time. Patient does have right upper quadrant pain. Patient denies any change in bowel habits. The patient has a prior history of appendectomy. Related Data Allergies Allergy/AdvReac Type Severity Reaction Status Date / Time No Known Allergies Allergy Verified 12/02/22 12:08 Review of Systems Review of Systems: All systems reviewed & are unremarkable except as noted in HPI and below PMFSH Past Medical History Medical History Anxiety Surgical History Surgical History Hx of appendectomy 2012 Social History Social History Substance use: current Substance use type: does not use Gender identity (if verbalized by the patient): Male Exam Narrative: APPEARANCE: Well appearing, no pain, no distress, well-nourished. HEAD: normocephalic, atraumatic. EYES: PERRLA/EOMI, conjunctivae clear. NOSE: Normal no drainage EARS:TMS clear with good light reflex. THROAT: Pharynx clear, no exudate. NECK: Supple. No adenopathy, no masses. RESPIRATORY: Airway patent, respirations nonlabored. Clear to auscultation bilaterally, no rales, rhonchi, wheezing. CARDIOVASCULAR: Regular rate and rhythm without murmurs rubs or gallops. ABDOMINAL: Right lower quadrant tenderness to palpation without rebound or guarding. MUSCULOSKELETAL: Moves all extremities. Strength/ROM intact, No edema, No calf tenderness. NEURO: Alert. Cranial nerves II through XII intact. Grossly intact SKIN: Warm, dry. Normal Color Course Course Emergency Course: 27-year-old male present to the ED for evaluation of lower abdominal pain. Patient was afebrile with no leukocytosis and a stable hemoglobin. Patient has a normal CMP, UA was negative for infection. CT abdomen pelvis shows no explanation for the patient's symptoms. Patient was encouraged to take Tylenol or ibuprofen for pain control, and to have close follow-up with his primary care physician. Patient and family are updated on the results of the workup. All questions concerns were addressed. Vital Signs Vital signs: Vital Signs Temperature 98.6 F 02/13/23 12:43 Pulse Rate 80 02/13/23 12:43 Respiratory Rate 16 02/13/23 12:43 Blood Pressure 133/83 02/13/23 12:43 Pulse Oximetry 100 02/13/23 12:43 Oxygen Delivery Room Air 02/13/23 12:43 Temperature 98.6 F 02/13/23 12:43 Pulse Rate 80 02/13/23 12:43 Respiratory Rate 16 02/13/23 12:43 Blood Pressure 133/83 02/13/23 12:43 Pulse Oximetry 100 02/13/23 12:43 Oxygen Delivery Room Air 02/13/23 12:43 Medical Decision Making Differential Diagnosis Differential Diagnosis: colitis, diverticulitis, bowel perforation Vital Signs Vital Signs: Vital Signs Temperature 98.6 F 02/13/23 12:43 Pulse Rate 80 02/13/23 12:43 Respiratory Rate 16 02/13/23 12:43 Blood Pressure 133/83 02/13/23 12:43 Pulse Oximetry 100 02/13/23 12:43 Oxygen Delivery Room Air 02/13/23 12:43 Temperature 98.6 F 02/13/23 12:43 Pulse Rate 80 02/13/23 12:43 Respiratory Rate 16 02/13/23 12:43 Blood Pressure 133/83 02/13/23 12:43 Pulse Oximetry 100 02/13/23 12:43 Oxygen Delivery Room Air 02/13/23 12:43
== END 2023-02-13 16:38 | disposition home or self-care (01) ==
PROVIDERS: Emergency Provider Emergency Medicine; PCP Family Medicine
DX: R10.31 Right lower quadrant pain (principal); F41.9 Anxiety disorder, unspecified
CPT/HCPCS: 36415; 74177; 80053; 81001; 83690; 85025; 96361; 96374; 99284; J1885; J7030; Q9967

== ENCOUNTER 2023-04-21 10:51 | Emergency (ER) | payer OTHER, SELFPAY ==
--- NOTE | 2023-04-21 10:53 | ED.URI ---
HPI - URI/Sore Throat General Chief Complaint: Upper Respiratory Infection Stated Complaint: sinus issue Time Seen by Provider: 04/21/23 11:17 Source: patient, RN notes reviewed and old records reviewed Mode of arrival: ambulatory Limitations: no limitations History of Present Illness HPI Narrative: 28 year old presents to the [facility] with complaints of sinus congestion, intermittent runny nose for 2 days. Has taken a DayQuil and NyQuil Patient states that he wants to be better by Sunday because he started a new job Denies cough, sore throat, chest pain, abdominal pain. Denies fevers Treatments prior to arrival: cold medicine Related Data Home Medications Medication Instructions Recorded Confirmed estradiol 1.5 mg tablet 3 mg PO DAILY 04/21/23 04/21/23 finasteride 5 mg tablet 5 mg PO DAILY 04/21/23 04/21/23 hydroxyzine HCl 50 mg tablet 50 mg PO PRN PRN Anxiety 04/21/23 04/21/23 progesterone micronized 100 mg 100 mg PO QAM 04/21/23 04/21/23 capsule spironolactone 50 mg tablet 50 mg PO DAILY 04/21/23 04/21/23 Allergies Allergy/AdvReac Type Severity Reaction Status Date / Time No Known Allergies Allergy Verified 12/02/22 12:08 Review of Systems Review of Systems: All systems reviewed & are unremarkable except as noted in HPI and below Constitutional: Constitutional: Reports no additional constitutional complaints Eyes: Eyes: Reports no additional eye complaints ENT: Reports as per HPI, Reports nasal congestion and Reports nasal discharge Cardiovascular: Cardiovascular: Reports no additional cardiovascular complaints, Denies chest pain and Denies dyspnea Respiratory: Respiratory: Reports no additional respiratory complaints, Denies chest congestion, Denies cough and Denies dyspnea Gastrointestinal: Gastrointestinal: Reports no additional gastrointestinal complaints, Denies abdominal pain, Denies nausea and Denies vomiting Musculoskeletal: Musculoskeletal: Reports no additional musculoskeletal complaints Integumentary/Breasts: Skin/Breast: Reports system reviewed and no additional complaints, except as docu Neurologic: Reports system reviewed and no additional complaints, except as documented Psychiatric: Psychiatric: Reports no additional psychiatric complaints Allergic/Immunologic: Allergic/Immunologic: Reports no additional allergic/immunologic complaints PMFSH Past Medical History Medical History Anxiety Surgical History Surgical History Hx of appendectomy 2012 Social History Social History Substance use: current Substance use type: does not use Gender identity (if verbalized by the patient): Male Comments At the time of my signature, I reviewed and agree with the nursing past medical, surgical, social, and family history. There is no relevant family history pertinent to the patient complaint. Exam Const: General: cooperative, healthy appearing, comfortable, no acute distress, well developed, alert and well nourished Nutritional Appearance: well nourished Orientation/consciousness: patient oriented x3 Limitations: no limitations HENMT: Head: normal to inspection Ears: hearing grossly normal bilaterally, external ears normal, TM's normal bilaterally, EAC's normal, mastoids normal and no periauricular adenopathy Face/Nose/Sinus: Normal external nose present, Normal nares present, No nasal polyps present, Normal nasal mucous membranes and turbinates present, No nasal discharge present, normal facial exam, face symmetric, No ecchymosis, No erythema and No Facial tenderness on exam of face and sinuses Face and sinus: normal facial exam and face symmetric Mouth: Yes Normal oral and palatal mucosa present, Yes lip normal, Yes tongue normal and Yes moist mucous membranes Throat: posterior oropharynx normal, uvula midline and po
[2023-04-21 11:02] VITALS: BP 120/91; PULSE 79; RESP 16; TEMP 37.7; O2SAT 99
== END 2023-04-21 11:47 | disposition home or self-care (01) ==
PROVIDERS: Emergency Provider Nurse Practitioner; PCP Family Medicine
DX: J01.90 Acute sinusitis, unspecified (principal); Z20.822 Contact with and (suspected) exposure to COVID-19; F41.9 Anxiety disorder, unspecified
CPT/HCPCS: 87426; 87804; 99213; G0463

== ENCOUNTER 2023-11-22 03:16 | Emergency (ER) | payer OTHER, SELFPAY ==
[2023-11-22 03:24] VITALS: BP 141/81; PULSE 104; RESP 17; TEMP 36.7; O2SAT 100
--- NOTE | 2023-11-22 03:40 | ED.GENADULT ---
HPI - General Adult General Chief complaint: Wound/Laceration Stated complaint: laceration Time Seen by Provider: 11/22/23 03:21 History of Present Illness HPI narrative: Patient is a 28-year-old male who presents to the emergency department this evening complaining of right upper thigh laceration. Patient states that he was cutting himself with a primer boxer which he usually does to relieve some anxiety. Patient states that he does this not to hurt himself and never cut too deep always making sure that the areas he is cutting are superficial and not near any vasculature. Patient states that accidentally he cut too deep. Patient's grandmother is a nurse and placed some Steri-Strips and bandaged his wound, however, instructed him to come to the emergency department as his wound will likely need stitches. Patient states that his tetanus is up-to-date. No additional symptoms or concerns at this time. Related Data Home Medications Medication Instructions Recorded Confirmed estradiol 1.5 mg tablet 3 mg PO DAILY 04/21/23 04/21/23 finasteride 5 mg tablet 5 mg PO DAILY 04/21/23 04/21/23 hydroxyzine HCl 50 mg tablet 50 mg PO PRN PRN Anxiety 04/21/23 04/21/23 progesterone micronized 100 mg 100 mg PO QAM 04/21/23 04/21/23 capsule spironolactone 50 mg tablet 50 mg PO DAILY 04/21/23 04/21/23 Allergies Allergy/AdvReac Type Severity Reaction Status Date / Time No Known Allergies Allergy Verified 11/22/23 03:27 Review of Systems Review of Systems: All systems are reviewed and are negative unless stated otherwise in the HPI. [facility] Past Medical History Medical History Anxiety Surgical History Surgical History Hx of appendectomy 2012 Social History Social History Substance use: current Substance use type: does not use Gender identity (if verbalized by the patient): Male Exam Narrative: General: Alert, awake, afebrile, in no acute distress. HEENT: PERRL, no rhinorrhea, no post nasal drip, oropharynx clear. Cardiovascular: Regular rate and rhythm, no murmurs, rubs or gallops, no peripheral edema. Respiratory: Clear to auscultation bilaterally, no tachypnea, no wheezing, no rhonchi, no rubs, no respiratory distress. Abdomen: Soft, nontender, nondistended, no rebound, no guarding, no peritoneal signs. Musculoskeletal: No joint swelling or deformity, normal muscle tone. Skin: Linear skin laceration to the right upper thigh measuring approximately 8 cm. Neurological: Alert and oriented to person, place, and time. Follows all commands. No focal deficits, speech is clear and fluent. Course Vital Signs Vital signs: Vital Signs Temperature 98.0 F 11/22/23 03:24 Pulse Rate 104 H 11/22/23 03:24 Respiratory Rate 17 11/22/23 03:24 Blood Pressure 141/81 H 11/22/23 03:24 Pulse Oximetry 100 11/22/23 03:24 Oxygen Delivery Room Air 11/22/23 03:24 Temperature 98.0 F 11/22/23 03:24 Pulse Rate 104 H 11/22/23 03:24 Respiratory Rate 17 11/22/23 03:24 Blood Pressure 141/81 H 11/22/23 03:24 Pulse Oximetry 100 11/22/23 03:24 Oxygen Delivery Room Air 11/22/23 03:24 Procedures Laceration Laceration 1: Date: 11/22/23 Time: 04:49 Site: lower extremity Side (If applicable): right Size (cm): 8 Description: linear Depth: simple, single layer Local Anesthetic: lidocaine 1% Amount of anesthesia used (mL): 3 Pre-repair: wound explored and irrigated ====== Skin Level ====== Skin layer closed with: nylon Size (cm): 5-0 Number of sutures: 12 Technique: simple, interrupted ====== Subcutaneous Layer ====== ====== Muscle Layer ====== ====== Tendon Layer ====== Medical Decision Making [employer] Medical dec
[2023-11-22] MEDS: LIDOCAINE HCL 1% LOCAL INJ 10 ML VIAL INFILTRATE (05:41)
== END 2023-11-22 05:43 | disposition home or self-care (01) ==
LOC: ANHED 04:10
PROVIDERS: Emergency Provider Emergency Medicine; PCP Family Medicine
DX: S71.111A Laceration without foreign body, right thigh, initial encounter (principal); F41.9 Anxiety disorder, unspecified; R45.88 Nonsuicidal self-harm; Z79.890 Hormone replacement therapy; W27.8XXA Contact with other nonpowered hand tool, initial encounter
CPT/HCPCS: 12004; 99282

== ENCOUNTER 2024-09-19 18:13 | Emergency (ER) | payer OTHER, SELFPAY ==
[2024-09-19 18:15] VITALS: BP 113/73; PULSE 83; RESP 14; TEMP 36.9; O2SAT 99
--- NOTE | 2024-09-19 18:17 | ED_ITS ---
HPI - Male Genitourinary General Stated complaint: pain in testicle Time Seen by Provider: 09/19/24 18:18 Source: patient Mode of arrival: ambulatory Limitations: no limitations History of Present Illness HPI Narrative: Pepe is a 29-year-old male patient presenting to the clinic today with complaints of right testicle pain x1 day. He reports his symptoms started yesterday. Pain comes and goes and feels as though it is to the lower testicle. Currently rates his pain a 3/10 however when he moves it is a an 8/10. Denies any blood in his semen, no urinary symptoms. No concern for STI. Denies any nausea, vomiting, back pain, or abdominal pain, No history of cystocele, testicular torsion, testicular mass, or STI. History of an inguinal hernia repair Related Data Allergies Allergy/AdvReac Type Severity Reaction Status Date / Time No Known Allergies Allergy Verified 09/19/24 18:15 Review of Systems Review of Systems: Pertinent positives per HPI. Patient denies any fever, chills, rash, headache, visual changes, dizziness, cough, runny nose, sore throat, shortness of breath, chest pain, palpitations, nausea, vomiting, diarrhea, constipation, abdominal pain, or any urinary issues. [facility] Past Medical History Medical History Anxiety Surgical History Surgical History Hx of appendectomy 2011 Social History Social History Substance use: current Substance use type: does not use Gender identity (if verbalized by the patient): Male Comments At the time of my signature, I reviewed and agree with the nursing past medical, surgical, social, and family history. There is no relevant family history pertinent to the patient complaint. Exam Narrative: General: Well-developed, well nourished, in no apparent distress. Head: Normocephalic, atraumatic. Cardio: Regular rate and rhythm, s1 and s2 normal, no murmur appreciated. Resp: Clear to auscultation bilaterally, no rhonchi, rales, wheezing or rubs. Abdomen: Soft, pliable, bowel sounds present in all quadrants, non-tender to palpation, no organomegly, no CVAT tenderness. : Circumcised male without corneal adhesions, no lesions or masses noted on the vas deferens, penile shaft, or scrotum, tenderness to palpation over the upper and lower pole of the right posterior testicle, no tenderness to palpation over the left testicle, no palpable inguinal hernia, cremasteric reflex present bilaterally. Course Course Emergency Course: Portions of this record may have been created with voice recognition software. Level of Care: Express Care Visit Vital Signs Vital signs: Vital signs reviewed Transfer Transfered to: [facility] Transportation: Other (Private car) Transfer rationale: Right testicle pain r/o torsion Accepting physician: Dr. Irizarry Transfer comments: Private car, NPO, grandmother to drive. MDM - Male Genitourinary MDM Narrative Medical decision making narrative: At the time of visit patient is resting comfortably on the exam table. Patient appears to be nontoxic. Plan: I suspect patient has right testicle pain likely due to epididymitis and less likely testicular torsion however, it is important to rule out testicular torsion as a potential diagnoses. Patient does not have any prior history of epididymitis. Recommend transfer to the emergency room for further evaluation/testicle ultrasound. Patient would like to be transfer to [facility] ER in [place], [place]. Report was called to Marilou YEBOAH and Dr. Irizarry is the accepting provider. Patient to be transfered via private car- grandmother driving. Differential Diagnosis Differential diagnosis: Likely urinary tract infection, urethritis, epididymitis, prostatitis, inguinal hernia and other (STI, testicular torsion) Discharge Plan Discharge Clinical Impression: Pain in right testicle Patient Disposition: Acute Care Hospital Condition: Stable Patient Language: Argentine Prescriptions: No Action estradiol 1.5 mg Tablet 3 mg PO DAILY hydroxyzine HCl 50 mg tablet 50 mg PO PRN PRN (Reason: Anxiety) finasteride 5 mg Tablet 5 mg PO DAILY spironolactone 50 mg Tablet 50 mg PO DAILY progesterone micronized 100 mg Capsule 100 mg PO QAM Rx Instructions: off 7 days; repeat cycle Follow-up/Referrals: Tank Curry MD [Primary Care Provider] - Time of Disposition: 18:35 Quality NIHSS Nursing Documentation ED NIHSS nursing documentation: reviewed/agree
== END 2024-09-19 18:32 | disposition short-term general hospital (02) ==
PROVIDERS: Emergency Provider Nurse Practitioner Family; PCP Family Medicine
DX: N50.811 Right testicular pain (principal)
CPT/HCPCS: 99212; G0463

== ENCOUNTER 2024-11-03 01:06 | Emergency (ER) | payer OTHER, SELFPAY ==
[2024-11-03 01:15] VITALS: BP 159/102; PULSE 91; RESP 18; TEMP 36.6; O2SAT 98
--- NOTE | 2024-11-03 01:24 | ED_ITS ---
HPI - Anxiety General Chief Complaint: Anxiety Stated Complaint: anxiety Time Seen by Provider: 11/03/24 01:22 Source: patient Mode of arrival: EMS Limitations: no limitations History of Present Illness HPI narrative: This is a 29 year old male that presents to the ER for anxiety. Reports he went to the police station [employer] to talk to someone. He was sent to the ER for further evaluation. He has no thoughts of harming himself or anyone else. Reports he is set up to see a psychologist this week. No previous suicide attempts or psychiatric hospitalizations. Related Data Allergies Allergy/AdvReac Type Severity Reaction Status Date / Time No Known Allergies Allergy Verified 11/03/24 01:20 Review of Systems Review of Systems: All systems reviewed & are unremarkable except as noted in HPI and below PMFSH Past Medical History Medical History Anxiety Surgical History Surgical History Hx of appendectomy 2012 Social History Social History Substance use: current Substance use type: does not use Gender identity (if verbalized by the patient): Male Exam Narrative: GENERAL: Well-appearing, well-nourished, and in no acute distress. HEAD: Normocephalic, atraumatic. EYES: EOMI. CHEST: No respiratory distress. HEART: Regular rate EXTREMITIES: Normal range of motion. No edema. SKIN: Warm, dry, no rash. NEURO: No focal deficits. Alert and oriented x3. PSYCH: Normal mood and affect Course Vital Signs Vital signs: Vital Signs Temperature 97.9 F 11/03/24 01:15 Pulse Rate 91 11/03/24 01:15 Respiratory Rate 18 11/03/24 01:15 Blood Pressure 159/102 H 11/03/24 01:15 Pulse Oximetry 98 11/03/24 01:15 Oxygen Delivery Room Air 11/03/24 01:15 Temperature 97.9 F 11/03/24 01:15 Pulse Rate 91 11/03/24 01:15 Respiratory Rate 18 11/03/24 01:15 Blood Pressure 159/102 H 11/03/24 01:15 Pulse Oximetry 98 11/03/24 01:15 Oxygen Delivery Room Air 11/03/24 01:15 MDM - Anxiety MDM Narrative Medical decision making narrative: Patient presents to the emergency department for anxiety. He had went to the police station to talk to somebody. They sent him to the ER for further evaluation. He does not have any thoughts of harming himself or anyone else. Reports he has ample resources. Does not want any further evaluation or management at this time. Critical Care Time Critical Care Time Critical Care Time: No Discharge Plan Discharge Clinical Impression: Acute anxiety Patient Disposition: Home Condition: Stable Instructions: Anxiety (ED) Additional Instructions: Return to the emergency department if you experience thoughts of harming yourself or anyone else, or any other symptoms that are concerning to you Follow up with your primary care doctor and psychologist Patient Language: Sinhala Follow-up/Referrals: Tank Curry MD [Primary Care Provider] -
--- OUTSIDE RECORDS SUMMARY | 2024-11-03 01:29 | XMS_ITS | Clinical Summary ---
Author Organization [facility] Address [address] [place] [address] Care Team Providers Care Boxing Promoter Name Role Phone None, Provider Primary Care Provider Reji Burnette MD Unavailable [phone] Allergies Active Allergy Reactions Criticality Noted Date Comments Tape Rash Low 09/19/2024 Medications ondansetron 4 MG tablet Take 4 mg by mouth every 8 (eight) hours as needed for Nausea. Active prochlorperazine 10 MG tablet Take 10 mg by mouth every 6 (six) hours as needed. Active hydrOXYzine (ATARAX) 25 MG tablet Take 1 tablet (25 mg total) by mouth 3 (three) times daily as needed for Anxiety. 30 tablet 4 Active ondansetron (ZOFRAN-ODT) 4 MG disintegrating tablet Take 1 tablet (4 mg total) by mouth every 8 (eight) hours as needed. 20 tablet 5 Active dicyclomine (BENTYL) 20 MG tablet Take 1 tablet (20 mg total) by mouth every 6 (six) hours for 7 days. 28 tablet 5 10/09/19 25 Encounters Date Type Department Care Team Description 09/30/2024 10:46 PM CDT - 10/01/2024 12:30 AM CDT Emergency [facility] [place] [address] Jimmie Youssef PA Abdominal Pain Discharge Disposition: Home or Self Care (Routine Discharge) 09/30/2024 Travel 09/21/2024 2:51 PM CDT - 09/21/2024 7:00 PM CDT Emergency [facility] [place] [address] Lynette Irizarry MD Possible Hernia Discharge Disposition: Home or Self Care (Routine Discharge) 09/21/2024 Travel 09/19/2024 7:08 PM CDT - 09/19/2024 9:42 PM CDT Emergency [facility] [place] [address] Renny Wood MD Testicular Pain Discharge Disposition: Home or Self Care (Routine Discharge) 09/19/2024 Travel from Last 3 Months Family History Medical History Relation Comments Heart Disease Father Diabetes Maternal Grandmother Heart Disease Maternal Grandmother Diabetes Mother Relation Status Comments Father Maternal Grandmother Mother Social History Tobacco Use Types Packs/Day Years Used Date Smoking Tobacco: Former Cigars Smokeless Tobacco: Never Tobacco Cessation:Counseling Given: Not Answered Alcohol Use Standard Drinks/Week Comments No 0 (1 standard drink = 0.6 oz pur e alcohol) AUDIT-C Answer Date Recorded Frequency of Alcohol Consumption Never 03/28/2019 Average Number of Drinks Not on file 020 Frequency of Binge Drinking Not on file 05/2019 Sex and Gender Information Value Date Recorded Sex Assigned at Not on file 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 Gender Identity Not on file Sexual Orientation Not on file Last Filed Vital Signs Vital Sign Reading Time Taken Comments Blood Pressure 135/82 09/30/2024 10:39 PM CDT Pulse 82 09/30/2024 10:39 PM CDT Temperature 36.5 C (97.7 F) 09/30/2024 10:39 PM CDT Respiratory Rate 14 09/30/2024 10:39 PM CDT Oxygen Saturation 100% 09/30/2024 10:39 PM CDT Inhaled Oxygen Concentration - - Weight 74.8 kg (165 lb) 09/30/2024 10:39 PM CDT Height 172.7 cm (5' 8) 09/30/2024 10:39 PM CDT Body Mass Index 25.09 09/30/2024 10:39 PM CDT Plan of Treatment Health Maintenance Due Date Last Done Comments Annual Physical 1999 Hepatitis C 2014 DTaP, Tdap and Td Vaccines ( 1 - Tdap) 2015 Hepatitis B Vaccines (1 of 3 - 19+ 3-dose series) 2015 HPV Vaccines (1 - 3-dose SCD M series) 2023 COVID-19 Vaccine (3 - 2023-2 5 season) 2023 07/17/2020, 06/24/2020 Meningococcal B Vaccine Aged Out No l onger eligible based on patient's age to complete this topic Meningococcal Vaccine Aged Out No savi suad eligible based on patient's age to complete this topic Pneumococcal Vaccine: Pediatrics (0 to 5 Years) and At-Risk Patients (6 to 49 Years) Aged Out No longer eligible b ased on patient's age to complete this topic RSV Immunizations Under 20 Months Aged Out No longer eligible b ased on patient's age to complete this topic Procedures Procedure Name Priority Date/Time Associated Diagnosis Comments CT ABD+PEL W CON STAT 09/30/2024 11:2 8 PM CDT LIPASE STAT 09/30/2024 11:03 PM CDT COMPREHENSIVE METABOLIC PANEL STAT 09/30/2024 11:03 PM CDT CBC W/DIFF AUTOMATED STAT 09/30/2024 11:03 PM CDT US TESTICULAR W DOPPLER STAT 09/21/2024 5:38 PM CDT LACTIC ACID TIMED 09/21/2024 3:[address] ABD+PEL W CON STAT 09/21/2024 3:09 PM CDT COMPREHENSIVE METABOLIC PANEL STAT 09/21/2024 2:56 PM CDT CBC W/DIFF AUTOMATED STAT 09/21/2024 2:56 PM CDT US TESTICULAR W DOPPLER STAT 09/19/2024 8:44 PM CDT HC URINALYSIS AUTO W/O MICRO STAT 09/19/2024 7:38 PM CDT from Last 3 Months Results * CT ABD+PEL W IV CON ONLY (09/30/2024 11:28 PM CDT) Only the most recent of2 resultswithin the time period is included. Anatomical Region Laterality Modality Abdomen Computed Tomogra phy 10/01/2024 12:0 4 AM CDT Impressions 10/01/2024 12:10 AM CDT IMPRESSION: 1. No definite imaging findings to explain the patient's symptoms. 2. Mild thickening of the urinary bladder wall which could be secondary to underdistention. No perivesicular inflammation. Referred By: Interpreted By: Mitch Pina MD, 10/01/2024 12:04 AM Narrative 10/01/2024 12:10 AM CDT [address] [address] EXAMINATION: CT ABDOMEN/PELVIS WITH CONTRAST INDICATION: Abdominal pain COMPARISON: 09/21/2024 TECHNIQUE: Computed tomography of the abdomen, and pelvis was performed after administration of intravenous contrast, 100 mL of Isovue 370, without immediate complication, according to routine protocol. Radiation dose reduction technique(s) were used FINDINGS: Lower Chest: Lung bases are clear. No cardiomegaly or pericardial effusion. Upper abdominal organs: The liver, spleen, pancreas, gallbladder, biliary tree, adrenal glands, and kidneys are within normal limits. Vascular: The abdominal aorta is normal in caliber. Lymph nodes: No retroperitoneal, mesenteric, or inguinal lymphadenopathy. Gastrointestinal: No bowel obstruction no definite bowel wall thickening or pericolonic inflammation. The appendix is not well-visualized though there are no secondary signs of appendicitis. Miscellaneous: No free intraperitoneal air or ascites. Pelvis: No free pelvic fluid. The urinary bladder is incompletely distended but appears mildly thickened. The prostate is unremarkable. MSK: No acute osseous abnormality or destructive bone lesions. Procedure Note Mitch Pina MD - 10/01/[address] [address] EXAMINATION: CT ABDOMEN/PELVIS WITH CONTRAST INDICATION: Abdominal pain COMPARISON: 09/21/2024 TECHNIQUE: Computed tomography of the abdomen, and pelvis was performedafter administration of intravenous contrast, 100 mL of Isovue 370,without immediate complication, according to routine protocol. Radiationdose reduction technique(s) were used FINDINGS: Lower Chest: Lung bases are clear. No cardiomegaly or pericardialeffusion. Upper abdominal organs: The liver, spleen, pancreas, gallbladder, biliarytree, adrenal glands, and kidneys are within normal limits. Vascular: The abdominal aorta is normal in caliber. Lymph nodes: No retroperitoneal, mesenteric, or inguinallymphadenopathy. Gastrointestinal: No bowel obstruction no definite bowel wall thickeningor pericolonic inflammation. The appendix is not well-visualized thoughthere are no secondary signs of appendicitis. Miscellaneous: No free intraperitoneal air or ascites. Pelvis: No free pelvic fluid. The urinary bladder is incompletelydistended but appears mildly thickened. The prostate is unremarkable. MSK: No acute osseous abnormality or destructive bone lesions. IMPRESSION: 1. No definite imaging findings to explain the patient's symptoms. 2. Mild thickening of the urinary bladder wall which could be secondaryto underdistention. No perivesicular inflammation. Referred By: Interpreted By: Mitch Pina MD, 10/01/2024 12:[address] Final Resul t * (ABNORMAL) COMPREHENSIVE METABOLIC PANEL (09/30/2024 11:03 PM CDT) Only the most recent of2 resultswithin the time period is included. GLUCOSE 104(H) 70 - 99 MG/DL 09/30/2024 11:45 PM CDT [facility] BUN 13 7 - 18 MG/DL 09/30/2024 11:45 PM CDT [facility] CREATININE S/P/B 0.78 0.7 - 1.3 MG/DL 09/30/2024 11:45 PM CDT [facility] SODIUM S/P/B 136 136 - 145 MMOL/L 09/30/2024 11:45 PM CDT [facility] POTASSIUM S/P/B 3.9 3.5 - 5.1 MMOL/L 09/30/2024 11:45 PM CDT [facility] CHLORIDE S/P/B 106 97 - 115 MMOL/L 09/30/2024 11:45 PM CDT [facility] CO2 27.7 21 - 32 MMOL/L 09/30/2024 11:45 PM CDT [facility] CALCIUM S/P/B 9.1 8.5 - 10.1 MG/DL 09/30/2024 11:45 PM CDT [facility] BILIRUBIN TOTAL S/P/B 0.4 0.2 - 1.2 MG/DL 09/30/2024 11:45 PM CDT [facility] Comment: THIS ASSAY IS NOT RECOMMENDED FOR PATIENTS UNDERGOING TREATMENT WITH ELTROMBOPAG DUE TO THE POTENTIAL FOR FALSELY ELEVATED RESULTS. TOTAL PROTEIN S/P/B 6.8 6.4 - 8.2 G/DL 09/30/2024 11:45 PM CDT [facility] ALBUMIN S/P/B 3.8 3.4 - 5.0 G/DL 09/30/2024 11:45 PM CDT [facility] AST 10(L) 15 - 37 U/L 09/30/2024 11:45 PM CDT [facility] ALT 21 16 - 60 U/L 09/30/2024 11:45 PM CDT [facility] ALKALINE PHOSPHATASE S/P/B 38(L) 50 - 136 U/L 09/30/2024 11:45 PM CDT [facility] ANION GAP 2.3 2 - 10 MMOL/L 09/30/2024 11:45 PM CDT [facility] BUN CREATININE RATIO 16.7 6 - 26 09/30/2024 11:45 PM CDT [facility] A/G RATIO 1.3 1.0 - 2.0 RATIO 09/30/2024 11:45 PM CDT [facility] GFR ESTIMATE >90 >90 ML/MIN/1.7 3 M2 09/30/2024 11:45 PM CDT [facility] Comment: NOTE: eGFR is not calculated for patients <18 years of age or gender unknown. This is an estimated GFR calculation using the new CKD EPI creatinine equation without race and so does not require a correction factor for race. This estimated GFR should not be used for calculating drug doses. 09/30/2024 11:0 3 PM CDT us [facility] Final Resul t [facility] [address] [id number], * (ABNORMAL) CBC W/DIFF AUTOMATED (09/30/2024 11:03 PM CDT) Only the most recent of2 resultswithin the time period is included. WBC 7.34 4.5 - 11.0 x10'3/uL 09/30/2024 11:27 PM CDT [facility] RBC 4.31(L) 4.70 - 6.10 x10'6/uL 09/30/2024 11:27 PM CDT [facility] HGB 12.4(L) 14.0 - 18.0 G/DL 09/30/2024 11:27 PM CDT [facility] HCT 35.7(L) 43.0 - 54.0 % 09/30/2024 11:27 PM CDT [facility] MCV 82.8 80.0 - 94.0 FL 09/30/2024 11:27 PM CDT [facility] MCH 28.8 27.0 - 31.0 PG 09/30/2024 11:27 PM CDT [facility] MCHC 34.7 32.0 - 36.0 G/DL 09/30/2024 11:27 PM CDT [facility] RDW 12.6 11.5 - 14.5 % 09/30/2024 11:27 PM CDT [facility] PLT 209 130 - 400 x10'3/uL 09/30/2024 11:27 PM CDT [facility] MPV 10.9 9.3 - 12.2 FL 09/30/2024 11:27 PM CDT [facility] DIFFERENTIAL TYPE AUTOMATED DIFFERENTIAL 09/30/2024 11:27 PM CDT [facility] NEUTROPHILS % 75.1 % 09/30/2024 11:27 PM CDT [facility] LYMPHOCYTES % 16.6 % 09/30/2024 11:27 PM CDT [facility] MONOCYTES % 4.2 % 09/30/2024 11:27 PM CDT [facility] EOSINOPHILS 3.3 % 09/30/2024 11:27 PM CDT [facility] BASOPHILS 0.5 % 09/30/2024 11:27 PM CDT [facility] IMMATURE GRANS % 0.3 % 10/01/19 11:27 PM CDT [facility] ABS. NEUTROPHILS 5.51 1.80 - 7.70 x10'3/uL 09/30/2024 11:27 PM CDT [facility] ABS. LYMPHOCYTES 1.22 1.00 - 4.80 x10'3/uL 09/30/2024 11:27 PM CDT [facility] ABS. MONOCYTES 0.31 0.30 - 0.82 x10'3/uL 09/30/2024 11:27 PM CDT [facility] ABS. EOSINOPHILS 0.24 0.04 - 0.54 x10'3/uL 09/30/2024 11:27 PM CDT [facility] ABS. BASOPHILS 0.04 0.01 - 0.08 x10'3/uL 09/30/2024 11:27 PM CDT [facility] ABS. IMMATURE GRANULOCYTES 0.02 0.00 - 0.49 x10'3/uL 09/30/2024 11:27 PM CDT [facility] 09/30/2024 11:0 3 PM CDT [facility] Final Resul t [facility] [address] [place] [address], [place] [phone] * LIPASE (09/30/2024 11:03 PM CDT) LIPASE 19 13 - 75 UNITS/L 09/30/2024 11:45 PM CDT [facility] 09/30/2024 11:0 3 PM CDT [facility] Final Resul t [facility] [address] [place] [address], [place] [phone] * US TESTICULAR W DOPPLER (09/21/2024 5:38 PM CDT) Only the most recent of2 resultswithin the time period is included. Anatomical Region Laterality Modality Pelvis Ultrasound 09/21/2024 5:59 PM CDT Impressions 09/21/2024 9:16 PM CDT IMPRESSION: No sonographic signs of testicular torsion or epididymitis/orchitis at time of evaluation. Heterogeneous appearance of partially obscured bilateral epididymides. Prominent nondilated engorged bilateral vasculature noted, nonspecific. If there is clinical concern for subtle early developing varicoceles the recommend clinical correlation with patient in standing upright position. No significant inguinal hernia demonstrated at this time sonographically. Preliminary: Heidi Barry MD09/21/2024 6:07 PM The attending radiologist has reviewed the image(s) and agrees with the content of this report. Ordered By: LYNETTE IRIZARRY Interpreted By: Heidi Barry MD, 09/21/2024 5:59 PM Narrative 09/21/2024 9:[address] PM [address] [address] EXAMINATION: US TESTICULAR W DOPPLER DATE: 09/21/2024 5:14 PM HISTORY: 29 years Male. Severe pain right testicle COMPARISON: Same day CT abdomen/pelvis. 09/19/2024 scrotal ultrasound. TECHNIQUE: An ultrasound examination of the testicles and scrotum was performed to assess grayscale appearance, color Doppler flow characteristics, and spectral waveform analysis. FINDINGS: Right testis: Normal in echogenicity, measuring 3.3 cm (L) X 1.8 cm (W) 2.4 cm (H) in dimension. Color flow and spectral analysis of the right testicle is normal. No right intratesticular mass is seen. Right scrotum: Trace right hydrocele. Left testis: Normal in echogenicity, measuring 3.6 cm (L) X 1.5 cm (W) X 2.0 cm (H) in dimension. Color flow and spectral analysis of the left testicle is normal. No left intratesticular mass is seen. A tiny solitary calcification is noted on the left testicle. Left scrotum: No hydrocele. Both epididymides are obscured by what appears to represent prominent clustered vasculature which extends into the bilateral inguinal canals. By criteria none none of them are dilated to represent varicocele but this time. These are nonspecific. Visualized portions of the epididymides findings are as follows: Left epididymis: Heterogeneous echotexture. Measuring 1.0 cm (W) X 1.0 cm (H) in dimension. Right epididymis: Heterogeneous echotexture. Measures 1.0 cm (W) X 0.9 cm (H) in dimension. Otherwise no discrete inguinal or scrotal hernia is demonstrated sonographically. Procedure Note Kareen Armenta MD - 09/21/[address] [address] EXAMINATION: US TESTICULAR W DOPPLER DATE: 09/21/2024 5:14 PM HISTORY: 29 years Male. Severe pain right testicle COMPARISON: Same day CT abdomen/pelvis. 09/19/2024 scrotal ultrasound. TECHNIQUE: An ultrasound examination of the testicles and scrotum wasperformed to assess grayscale appearance, color Doppler flowcharacteristics, and spectral waveform analysis. FINDINGS: Right testis: Normal in echogenicity, measuring 3.3 cm (L) X 1.8 cm (W)2.4 cm (H) in dimension. Color flow and spectral analysis of the righttesticle is normal. No right intratesticular mass is seen. Right scrotum: Trace right hydrocele. Left testis: Normal in echogenicity, measuring 3.6 cm (L) X 1.5 cm (W) X2.0 cm (H) in dimension. Color flow and spectral analysis of the lefttesticle is normal. No left intratesticular mass is seen. A tiny solitarycalcification is noted on the left testicle. Left scrotum: No hydrocele. Both epididymides are obscured by what appears to represent prominentclustered vasculature which extends into the bilateral inguinal canals. Bycriteria none none of them are dilated to represent varicocele but thistime. These are nonspecific. Visualized portions of the epididymides findings are as follows: Left epididymis: Heterogeneous echotexture. Measuring 1.0 cm (W) X 1.0 cm(H) in dimension. Right epididymis: Heterogeneous echotexture. Measures 1.0 cm (W) X 0.9 cm(H) in dimension. Otherwise no discrete inguinal or scrotal hernia is demonstratedsonographically. IMPRESSION: No sonographic signs of testicular torsion or epididymitis/orchitis attime of evaluation. Heterogeneous appearance of partially obscured bilateral epididymides. Prominent nondilated engorged bilateral vasculature noted, nonspecific. If there is clinical concern for subtle early developing varicoceles therecommend clinical correlation with patient in standing uprightposition. No significant inguinal hernia demonstrated at this timesonographically. Preliminary: Heidi Barry MD09/21/2024 6:07 PM The attending radiologist has reviewed the image(s) and agrees with thecontent of this report. Ordered By: LYNETTE IRIZARRY Interpreted By: Heidi Barry MD, 09/21/2024 5:59 PM Lynette Irizarry MD ULTRASOUND Final Result * LACTIC ACID - SINGLE (09/21/2024 3:52 PM CDT) Pathologist [facility] LACTIC ACID VENOUS 0.6 0.4 - 2.0 MMOL/L 09/21/2024 4:19 PM CDT [facility] 09/21/2024 3:52 PM CDT us Lynette Irizarry MD LABORATORY Final Result [facility] [address] [place] [address], [place] [phone] * (ABNORMAL) URINALYSIS (09/19/2024 7:38 PM CDT) SPECIMEN TYPE URINE CLEAN CATCH 09/19/2024 8:19 PM CDT [facility] COLOR (U) YELLOW 09/19/2024 9:00 PM CDT [facility] TRANSPARENCY CLEAR 09/19/2024 9:00 PM T [facility] SPECIFIC GRAVITY (U) 1.035(H) 1.001 - 1.030 09/19/2024 9:00 PM T [facility] U PH 6.5 5.0 - 9.0 09/19/2024 9:00 PM T [facility] LEUKOCYTES (U) NEGATIVE NEGATIVE 09/19/2024 9:00 PM T [facility] NITRITES NEGATIVE NEGATIVE 09/19/2024 9:00 PM [facility] PROTEIN RANDOM (U) 30(H) <30 MG/DL 09/19/2024 9:00 PM T [facility] GLUCOSE (U) NORMAL NORMAL MG/DL 09/19/2024 9:00 PM T [facility] KETONES MG/DL (U) TRACE(A) NEGATIVE MG/DL 09/19/2024 9:00 PM [facility] UROBILINOGEN 2.0(A) NORMAL MG/DL 09/19/2024 9:00 PM [facility] BILIRUBIN (U) NEGATIVE NEGATIVE MG/DL 09/19/2024 9:00 PM T [facility] BLOOD (U) NEGATIVE NEGATIVE 09/19/2024 9:00 PM T [facility] MUCUS MANY /LPF 09/19/2024 9:00 PM T [facility] WBC/HPF 4 <6 /HPF 09/19/2024 9:00 PM T [facility] RBC/HPF <1 <6 /HPF 09/19/2024 9:00 PM T [facility] SQUAMOUS EPITHELIALS FEW /HPF 09/19/2024 9:00 PM CDT [facility] URINE SPECIMEN OBTAINED BY CLEAN CATCH PROCEDURE / Unknown 09/19/2024 7:38 PM CDT Renny Wood MD URINE ORDERABLES Final Result [facility] [address] [place] [address], from Last 3 Months Insurance [employer] Care Teams Boxing Promoter Relationship Specialty Start Date End Date None, Provider, PCP - General UNKNOWN PHYSICIAN SPECIALTY 01/17/24 Reji Betancourt MD [address] [place] [phone] Consulting Physician GENERAL SURGERY 09/19/24 09/19/25
--- OUTSIDE RECORDS SUMMARY | 2024-11-03 01:29 | XMS_ITS | Clinical Summary ---
Author Organization [facility] Address [address] [place] [address] Care Team Providers Care Resource Technician Name Role Phone Kierra Hull MD Primary Care Provider Source Comments [facility],non-owned Affiliates and Associated Physician Practices is amultiple site organization consisting of ambulatory clinics and hospital sitesin [place], [place], [place]. This disclosure is being madepursuant to the Care Everywhere program and may not contain all information available regarding this patient. 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 Gender Identity Not on file Sexual Orientation Not on file Plan of Treatment Health Maintenance Due Date Last Done Comments HIV SCREENING 2011 HEPATITIS C SCREENING 03/14/2014 DTAP/TDAP/TD VACCINES (1 - Tdap) 2015 HEPATITIS B VACCINE (1 of 3 - 19+ 3-dose series) 2015 HPV VACCINE (1 - 3-dose SCDM series) 2023 COVID-19 VACCINE ( - 2023-2 5 season) 2023 DEPRESSION SCREENING 03/26/2024 INFLUENZA VACCINE (#1) 2024 ZOSTER VACCINE (1 of 2) 2046 HIB VACCINE Aged Out No longer eligi ble based on patient's age to complete this topic MENINGOCOCCAL (Group B) VACC INE SHARED DECISION-MAKING Aged Out No longer eligibl e based on patient's age to complete this topic MENINGOCOCCAL GROUPS A/C/Y/W VACCINE Aged Out No longer eligible b ased on patient's age to complete this topic PNEUMOCOCCAL VACCINE Aged Out No long er eligible based on patient's age to complete this topic Care Teams Resource Technician Relationship Specialty Start Date End Date Kierra Hull MD [address] [place] [id number] PCP - General 07/25/21
== END 2024-11-03 01:37 | disposition home or self-care (01) ==
LOC: ANHED 01:27
PROVIDERS: Emergency Provider Physician Assistant; PCP Family Medicine
DX: F41.9 Anxiety disorder, unspecified (principal)
CPT/HCPCS: 99281

== ENCOUNTER 2024-11-24 00:06 | Emergency (ER) | payer OTHER, SELFPAY ==
--- NOTE | ~2024-11-24 | US_ITS ---
EXAMINATION: US scrotum doppler DATE: 11/24/2024 01:36 INDICATION: Right testicular pain, nausea and vomiting TECHNIQUE: Testicular sonogram utilizing grayscale and Doppler COMPARISON: None. FINDINGS: The right testis measures 3.5 x 2.6 x 1.7 cm. The left testis measures 3.5 x 2.2 x 1.5 cm. Symmetric normal grayscale appearance to both testes. There is normal vascular flow to both testes with both venous and arterial waveforms identified in both testes. The the tail of the right epididymis appears thickened and heterogeneously hypoechoic with mild increased vascular flow on color Doppler suspicious for epididymitis. The left epididymis is normal with normal vascular flow. There is no varicocele or hydrocele. IMPRESSION: 1. Enlarged heterogeneously appearing right epididymal tail with increased vascular flow on color Doppler suspicious for epididymitis. 2. Normal bilateral testes. Reviewed, dictated and finalized at location A. IMPRESSION: 1. Enlarged heterogeneously appearing right epididymal tail with increased vas cular flow on color Doppler suspicious for epididymitis. 2. Normal bilateral testes.
--- NOTE | ~2024-11-24 | CT_ITS ---
EXAMINATION: CT abdomen pelvis wo con DATE: 11/24/2024 02:07 INDICATION: Flank and right scrotal pain TECHNIQUE: Computed tomography (CT) of the abdomen and pelvis was performed without intravenous contrast. Automated exposure control and iterative reconstruction technique were employed. The dose-length product was 216.62 mGy-cm. COMPARISON: 10/13/2022 FINDINGS: Lung bases are clear. Heart size is normal. No pericardial or pleural effusion. Liver, gallbladder, spleen, pancreas, bilateral adrenal glands and kidneys are normal. No urolithiasis or hydronephrosis. Bowels are normal with no obstruction. Bladder is normal. No free intraperitoneal gas or fluid. No pa thologically enlarged abdominal or pelvic lymphadenopathy. Bones are unremarkable. IMPRESSION: 1. No urolithiasis or acute intra-abdominal/pelvic process. Reviewed, dictated and finalized at location A.
[2024-11-24 00:08] VITALS: BP 146/100; PULSE 121; RESP 16; TEMP 36.7; O2SAT 100
--- OUTSIDE RECORDS SUMMARY | 2024-11-24 00:08 | XMS_ITS | Patient Health Record ---
Author Organization [facility] Address [address] [place] [address] Care Team Providers Care Access Clinician Name Role Phone Nicci Hooks Primary Care Provider Allergies Allergen (clinical drug ingredient) Drug/Non Drug Allergy documented on EMR Reaction Allergy Type Onset Date Status adhesive (uncoded) rash Allergy A ctive Reason For Referral Reason Recommend DBT or EMD R Diagnosis 1 PTSD (post-traumatic stress disorder) (F43.10) Diagnosis 2 Borderline personali ty disorder (F60.3) Referral Organization [facility] Referring Provider First Name Nicci Referring Provider Last Name Neva Referring Provider Speciality Psychiatry Ref[facility] Referral Priority Routine Medications Medication SIG (Take, Route, Fr equency, Duration) Notes Start Date End Date Status Sertraline HCl 50 MG 1 tablet Orally Onc e a day; Duration: 30 day(s) 11/19/2024 Active LORazepam 0.5 MG 1 tablet Orally twice a day; Duration: 30 days As needed 11/19/2024 Active lamoTRIgine 25 MG 2 tablets (50 mg) Or ally Once a day; Duration: 30 days 11/19/2024 Active Social History Tobacco Use: Social History Observation Description Date Details (start date - stop date) Never Smoker NA - NA Tobacco Control (Standard) Question Answer Notes Tobacco use: Nonsmoker Problems Problem Type SNOMED Code ICD Code Onset Dates Problem Status W/U Status Risk Notes Problem Borderline personality disorder (64730970) Borderline personality disorder (F60.3) Active confirmed Problem Posttraumatic stress disorder (82054756) PTSD (post-traumatic stress disorder) (F43.10) Active confirmed Problem Panic disorder (582163638) Panic disorder (F41.0) Active confirmed Encounters Encounter Location Date Provider Diagnosis [address] [place] [address] 11/19/2024 Nicci Hooks PTSD (post-traumatic stress disorder) F43.10 ; Borderline personality disorder F60.3 ; Panic disorder F41.0 and Medication management Z79.899 Assessments Encounter Date Diagnosis (ICD Code) Assessment Notes Treatment Notes Treatment Clinical Notes Section Notes 11/19/2024 Borderline personality disorder (ICD-10 - F60.3) 11/19/2024 PTSD (post-traumatic stress disorder) (ICD-10 - F43.10) 11/19/2024 Panic disorder (ICD-10 - F41.0) 11/19/2024 Medication management (ICD-10 - Z79.899) Plan Of Treatment No Information Insurance Providers Payer Name Payer Address Payer Phone Subscriber Number Group Number Insured Name Patient Relationship to Insured Coverage Start Date Coverage End Date [employer] [facility] Attn Claims Department [address] [place] [address] [phone] [id number] Ricco Martinez Self - patient is the insured 5 [facility] Attn Claims Department [address] [place] [address] [phone] [id number] Ricco Martinez Self - patient is the insured 5 Medical (General) History Surgical History Surgery Date(Month/Year) appendectomy hernia repair Hospitalization History Reason Date(Month/Year) denisse
--- OUTSIDE RECORDS SUMMARY | 2024-11-24 00:08 | XMS_ITS | Clinical Summary ---
Author Organization [facility] Address [address] [place] [address] Care Team Providers Care Orthotic/Prosthetic Clinician Name Role Phone None, Provider Primary Care Provider Reji Burnette MD Unavailable [phone] Allergies Active Allergy Reactions Criticality Noted [...] hours as needed. 20 tablet 5 Active Encounters Date Type Department Care Team Description 09/30/2024 10:46 PM CDT - 10/01/2024 12:30 AM CDT Emergency [facility] [place] [address] Jimmie Youssef PA Abdominal Pain Discharge Disposition: Home or Self Care (Routine Discharge) 09/30/2024 Travel 09/21/2024 2:51 PM CDT - 09/21/2024 7:00 PM CDT Emergency [facility] [place] [address] Lynette Iirzarry MD Possible Hernia Discharge Disposition: Home or Self Care (Routine Discharge) 09/21/2024 Travel 09/19/2024 7:08 PM CDT - 09/19/2024 9:42 PM CDT Emergency [facility] [place] [address] Renny Wood MD Testicular Pain Discharge Disposition: [...] on file 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 Gender Identity Not on file Sexual Orientation [...] SCD M series) 2023 COVID-19 Vaccine (3 2023-2 5 season) 2023 07/17/2020, 06/24/2020 Meningococcal [...] 12:04 AM Narrative 10/01/2024 12:10 AM CDT [place] [address] EXAMINATION: CT ABDOMEN/PELVIS WITH CONTRAST INDICATION: Abdominal [...] Procedure Note Mitch Pina MD - 10/01/2024 [facility] [address] [place], [place] [address] EXAMINATION: CT ABDOMEN/PELVIS WITH CONTRAST INDICATION: Abdominal [...] - 99 MG/DL 09/30/2024 11:45 PM CDT [facility] BUN 13 7 - 18 MG/DL 09/30/2024 11:45 PM CDT [facility] CREATININE S/P/B 0.78 0.7 - 1.3 MG/DL 09/30/2024 11:45 PM CDT [facility] SODIUM S/P/B 136 136 - 145 MMOL/L 09/30/2024 11:45 PM CDT [facility] POTASSIUM S/P/B 3.9 3.5 - 5.1 MMOL/L 09/30/2024 11:45 PM CDT [facility] CHLORIDE S/P/B 106 97 - 115 MMOL/L 09/30/2024 11:45 PM CDT [facility] CO2 27.7 21 - 32 MMOL/L 09/30/2024 11:45 PM CDT [facility] CALCIUM S/P/B 9.1 8.5 - 10.1 MG/DL 09/30/2024 11:45 PM CDT [facility] BILIRUBIN TOTAL S/P/B 0.4 0.2 - 1.2 MG/DL 09/30/2024 11:45 PM CDT [facility] Comment: THIS ASSAY IS NOT RECOMMENDED FOR PATIENTS UNDERGOING TREATMENT WITH ELTROMBOPAG DUE TO THE POTENTIAL FOR FALSELY ELEVATED RESULTS. TOTAL PROTEIN S/P/B 6.8 6.4 - 8.2 G/DL 09/30/2024 11:45 PM CDT [facility] ALBUMIN S/P/B 3.8 3.4 - 5.0 G/DL 09/30/2024 11:45 PM CDT [facility] AST 10(L) 15 - 37 U/L 09/30/2024 11:45 PM CDT [facility] ALT 21 16 - 60 U/L 09/30/2024 11:45 PM T [facility] ALKALINE PHOSPHATASE S/P/B 38(L) 50 - 136 U/L 09/30/2024 11:45 PM CDT [facility] ANION GAP 2.3 2 - 10 MMOL/L 09/30/2024 11:45 PM CDT [facility] BUN CREATININE RATIO 16.7 6 - 26 09/30/2024 11:45 PM CDT [facility] A/G RATIO 1.3 1.0 - 2.0 RATIO 09/30/2024 11:45 PM CDT [facility] GFR ESTIMATE >90 >90 ML/MIN/1.7 3 M2 09/30/2024 11:45 PM CDT [facility] Comment: NOTE: eGFR is not calculated for patients <18 years of age or gender unknown. This is an estimated GFR calculation using the new CKD EPI creatinine equation without race and so does not require a correction factor for race. This estimated GFR should not be used for calculating drug doses. 09/30/2024 11:0 3 PM CDT [facility] Final Resul t [facility] [address] [place] [address], [place] [phone] * (ABNORMAL) CBC W/DIFF AUTOMATED (09/30/2024 11:03 PM CDT) Only the most recent of2 resultswithin the time period is included. WBC 7.34 4.5 - 11.0 x10'3/uL 09/30/2024 11:27 PM CDT [facility] RBC 4.31(L) 4.70 - 6.10 x10'6/uL 09/30/2024 11:27 PM CDT [facility] HGB 12.4(L) 14.0 - 18.0 G/DL 09/30/2024 11:27 PM CDT [facility] HCT 35.7(L) 43.0 - 54.0 % 09/30/2024 11:27 PM CDT [facility] MCV 82.8 80.0 - 94.0 FL 09/30/2024 11:27 PM CDT [facility] MCH 28.8 27.0 - 31.0 PG 09/30/2024 11:27 PM CDT [facility] MCHC 34.7 32.0 - 36.0 G/DL 09/30/2024 11:27 PM CDT [facility] RDW 12.6 11.5 - 14.5 % 09/30/2024 11:27 PM CDT [facility] PLT 209 130 - 400 x10'3/uL 09/30/2024 11:27 PM CDT [facility] MPV 10.9 9.3 - 12.2 FL 09/30/2024 11:27 PM CDT [facility] DIFFERENTIAL TYPE AUTOMATED DIFFERENTIAL 09/30/2024 11:27 PM CDT [facility] NEUTROPHILS % 75.1 % 09/30/2024 11:27 PM CDT [facility] LYMPHOCYTES % 16.6 % 09/30/2024 11:27 PM CDT [facility] MONOCYTES % 4.2 % 09/30/2024 11:27 PM CDT [facility] EOSINOPHILS 3.3 % 09/30/2024 11:27 PM CDT [facility] BASOPHILS 0.5 % 09/30/2024 11:27 PM CDT [facility] IMMATURE GRANS % 0.3 % 10/01/19 11:27 PM CDT [facility] ABS. NEUTROPHILS 5.51 1.80 - 7.70 x10'3/uL 09/30/2024 11:27 PM CDT [facility] ABS. LYMPHOCYTES 1.22 1.00 - 4.80 x10'3/uL 09/30/2024 11:27 PM CDT [facility] ABS. MONOCYTES 0.31 0.30 - 0.82 x10'3/uL 09/30/2024 11:27 PM CDT [facility] ABS. EOSINOPHILS 0.24 0.04 - 0.54 x10'3/uL 09/30/2024 11:27 PM CDT [facility] ABS. BASOPHILS 0.04 0.01 - 0.08 x10'3/uL 09/30/2024 11:27 PM CDT [facility] ABS. IMMATURE GRANULOCYTES 0.02 0.00 - 0.49 x10'3/uL 09/30/2024 11:27 PM CDT [facility] 09/30/2024 11:0 3 PM CDT [facility] Final Resul t [facility] [address] [place] [address], [place] [phone] * LIPASE (09/30/2024 11:03 PM CDT) LIPASE 19 13 - 75 UNITS/L 09/30/2024 11:45 PM CDT [facility] 09/30/2024 11:0 3 PM CDT [facility] Final Resul t [facility] [address] [place] [address], [place] [phone] * US TESTICULAR W DOPPLER (09/21/2024 5:38 [...] 5:59 PM Narrative 09/21/2024 9:16 PM CDT [address] [address] EXAMINATION: US TESTICULAR W DOPPLER DATE: 09/21/2024 [...] Procedure Note Kareen Armenta MD - 09/21/2024 [facility] [address] [place], [place] [address] EXAMINATION: US TESTICULAR W DOPPLER DATE: 09/21/2024 [...] ACID - SINGLE (09/21/2024 3:52 PM CDT) LACTIC ACID VENOUS 0.6 0.4 - 2.0 MMOL/L 09/21/2024 4:19 PM CDT [facility] 09/21/2024 3:52 PM CDT us Lynette Irizarry MD LABORATORY Final Result [facility] [address] [place] [address], [place] [phone] * (ABNORMAL) URINALYSIS (09/19/2024 7:38 PM CDT) SPECIMEN TYPE URINE CLEAN CATCH 09/19/2024 8:19 PM CDT [facility] COLOR (U) YELLOW 09/19/2024 9:00 PM CDT [facility] TRANSPARENCY CLEAR 09/19/2024 9:00 PM CDT [facility] SPECIFIC GRAVITY (U) 1.035(H) 1.001 - 1.030 09/19/2024 9:00 PM T [facility] U PH 6.5 5.0 - 9.0 09/19/2024 9:00 PM T [facility] LEUKOCYTES (U) NEGATIVE NEGATIVE 09/19/2024 9:00 PM T [facility] NITRITES NEGATIVE NEGATIVE 09/19/2024 9:00 PM T [facility] PROTEIN RANDOM (U) 30(H) <30 MG/DL 09/19/2024 9:00 PM [facility] GLUCOSE (U) NORMAL NORMAL MG/DL 09/19/2024 9:00 PM [facility] KETONES MG/DL (U) TRACE(A) NEGATIVE MG/DL 09/19/2024 9:00 PM [facility] UROBILINOGEN 2.0(A) NORMAL MG/DL 09/19/2024 9:00 PM T [facility] BILIRUBIN (U) NEGATIVE NEGATIVE MG/DL 09/19/2024 9:00 PM [facility] BLOOD (U) NEGATIVE NEGATIVE 09/19/2024 9:00 PM [facility] MUCUS MANY /LPF 09/19/2024 9:00 PM [facility] WBC/HPF 4 <6 /HPF 09/19/2024 9:00 PM [facility] RBC/HPF <1 <6 /HPF 09/19/2024 9:00 PM [facility] SQUAMOUS EPITHELIALS FEW /HPF 09/19/2024 9:00 PM [facility] URINE SPECIMEN OBTAINED BY CLEAN CATCH PROCEDURE / Unknown 09/19/2024 7:38 PM CDT Renny Wood MD URINE ORDERABLES Final Result [facility] [address] [place] [address], [place] [phone] from Last 3 Months Insurance [place] Care Teams Orthotic/Prosthetic Clinician Relationship Specialty Start Date End Date None, Provider, PCP - General UNKNOWN PHYSICIAN SPECIALTY 01/17/24 Reji Betancourt MD [address] [place] [id number] Consulting Physician GENERAL SURGERY 09/19/24 09/19/25
--- OUTSIDE RECORDS SUMMARY | 2024-11-24 00:08 | XMS_ITS | Clinical Summary ---
Author Organization [facility] Address [address] [place] [address] Care Team Providers Care Badger Distiller Operator Name Role Phone Kierra Hull MD Primary Care Provider [phone] Source Comments [facility],non-owned Affiliates and Associated Physician Practices is amultiple site organization consisting of ambulatory clinics and hospital sitesin [place], [place], [place] and [place]. This disclosure is being madepursuant to the Care Everywhere program and may not contain all information available regarding this patient. 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
[2024-11-24 00:58] VITALS: BP 149/96; PULSE 86; RESP 15; TEMP 36.6; O2SAT 93
[2024-11-24] MEDS: HYDROmorphone HCL INJ (*CRX) 1 MG/ML SYR IV PUSH (01:50)
[2024-11-24 01:53] LABS: Hematocrit 35.4 % (42.0-52.0); Hemoglobin 12.2 g/dL (14.0-18.0); Immature Granulocyte Percent A 0.6 % (0-0.5); Lymphocytes Absolute Auto 1.06 K/mm3 (0.9-3.2); Mean Corpuscular HGB Conc 34.5 g/dl (32-36); Mean Corpuscular Hemoglobin 29.3 pg (26-34); Mean Corpuscular Volume 85.1 fl (80-100); Nucleated Red Blood Cells Absolute Auto 0.000 K/mm3 (0.0-0.012); Nucleated Red Blood Cells Perc 0.0 % (0.0-0.2); Platelet Count Result 227 k/mm3 (150-375); Red Blood Count 4.16 M/mm3 (4.6-6.20); White Blood Count 15.1 K/mm3 (4.5-10.0)
[2024-11-24 02:05] LABS: Alanine Aminotransferase 13 U/L (6-50); Albumin Level 4.5 g/dL (3.5-5.1); Alkaline Phosphatase 48 U/L (38-126); Anion Gap 10 mmol/L (4-12); Aspartate Amino Transferase 19 U/L (17-59); Bilirubin,Total 0.7 mg/dL (0.2-1.3); Blood Urea Nitrogen 15 mg/dL (9-20); Calcium 8.9 mg/dL (8.4-10.2); Carbon Dioxide 23 mmol/L (22-30); Chloride 104 mmol/L (98-107); Estimated CRCL calculation 121 ml/min; Estimated Glomerular Filt Rate > 60; Glucose 140 mg/dL (65-110); Lipase 58 U/L (23-300); Potassium 3.4 mmol/L (3.4-5.0); Sodium 137 mmol/L (137-145); Total Protein 7.4 g/dL (6.3-8.2)
[2024-11-24 02:06] VITALS: BP 152/102; PULSE 71; RESP 14; O2SAT 95
[2024-11-24] MEDS: ONDANSETRON INJ 4 MG/2 ML VIAL IV PUSH (02:10)
[2024-11-24] MEDS: SODIUM CHLORIDE 0.9% IV 1,000 ML 999 ML IV CONT (02:16)
[2024-11-24 02:52] VITALS: BP 148/99; PULSE 64; RESP 15; O2SAT 98
[2024-11-24 03:36] VITALS: BP 127/84; PULSE 70; RESP 14; O2SAT 99
--- NOTE | 2024-11-24 04:00 | ED_ITS ---
HPI - General Adult General Chief complaint: Unspecified Stated complaint: testicle pain Time Seen by Provider: 11/24/24 00:56 History of Present Illness HPI narrative: Patient is a 29-year-old gentleman who presents emergency department with chief complaint of right-sided testicle pain patient states pain started yesterday reports that he was told that he also had a hernia patient had similar episodes back in August patient denies fever denies penile discharge Related Data Allergies Allergy/AdvReac Type Severity Reaction Status Date / Time No Known Allergies Allergy Verified 11/24/24 00:46 [facility] Past Medical History Medical History Anxiety Surgical History Surgical History Hx of appendectomy 2011 Social History Social History Substance use: current Substance use type: does not use Gender identity (if verbalized by the patient): Male Course Vital Signs Vital signs: Vital Signs Temperature 36.7 C 11/24/24 00:08 Pulse Rate 121 H 11/24/24 00:08 Respiratory Rate 16 11/24/24 00:08 Blood Pressure 146/100 H 11/24/24 00:08 Pulse Oximetry 100 11/24/24 00:08 Oxygen Delivery Room Air 11/24/24 00:08 Temperature 36.6 C 11/24/24 00:58 Pulse Rate 70 11/24/24 03:36 Respiratory Rate 14 11/24/24 03:36 Blood Pressure 127/84 11/24/24 03:36 Pulse Oximetry 99 11/24/24 03:36 Oxygen Delivery Room Air 11/24/24 00:08 Medical Decision Making [facility] Narrative Medical decision making narrative: Differential diagnosis includes testicular torsion, epididymitis orchitis, ureterolithiasis, hernia CT scan of the abdomen pelvis showed no acute abnormality no ureterolithiasis Scrotal ultrasound showed no evidence of torsion there was epididymitis of the right testis Vital Signs Vital Signs: Vital Signs Temperature 36.7 C 11/24/24 00:08 Pulse Rate 121 H 11/24/24 00:08 Respiratory Rate 16 11/24/24 00:08 Blood Pressure 146/100 H 11/24/24 00:08 Pulse Oximetry 100 11/24/24 00:08 Oxygen Delivery Room Air 11/24/24 00:08 Temperature 36.6 C 11/24/24 00:58 Pulse Rate 70 11/24/24 03:36 Respiratory Rate 14 11/24/24 03:36 Blood Pressure 127/84 11/24/24 03:36 Pulse Oximetry 99 11/24/24 03:36 Oxygen Delivery Room Air 11/24/24 00:08 Lab Data 11/24/24 01:46 11/24/24 01:46 Labs: Lab Results 11/24/24 Range/Units 01:46 WBC 15.1 H (4.5-10.0) K/mm3 RBC 4.16 L (4.6-6.20) M/mm3 Hgb 12.2 L (14.0-18.0) g/dL Hct 35.4 L (42.0-52.0) % MCV 85.1 (80-100) fl MCH 29.3 (26-34) pg MCHC 34.5 (32-36) g/dl RDW 13.0 (11.5-14.5) % Plt Count 227 (150-375) k/mm3 MPV 10.4 (7.4-10.4) fl Immature Gran % (Auto) 0.6 H (0-0.5) % Neut % (Auto) 86.6 H (45.5-73.1) % Lymph % (Auto) 7.0 L (18.3-44.2) % [place] % (Auto) 4.4 (2.6-8.5) % Eos % (Auto) 1.1 (0-4.4) % Baso % (Auto) 0.3 (0.2-1.2) % Lymph # (Auto) 1.06 (0.9-3.2) K/mm3 [place] # (Auto) 0.7 H (0.1-0.6) K/mm3 Eos # (Auto) 0.2 (0-0.3) K/mm3 Baso # (Auto) 0.0 (0.0-0.1) K/mm3 Abs Immat Gran (auto) 0.09 H (0.00-0.031) K/mm3 Absolute Neuts (auto) 13.1 H (1.3-6.7) K/mm3 Absolute Nucleated RBC 0.000 (0.0-0.012) K/mm3 Nucleated RBC % 0.0 (0.0-0.2) % Sodium 137 (137-145) mmol/L Potassium 3.4 (3.4-5.0) mmol/L Chloride 104 (98-107) mmol/L Carbon Dioxide 23 (22-30) mmol/L Anion Gap 10 (4-12) mmol/L BUN 15 (9-20) mg/dL Creatinine 0.76 (0.7-1.3) mg/dL Estim Creat Clear Calc 121 ml/min Estimated GFR > 60 (59 - ) Glucose 140 H (65-110) mg/dL Calcium 8.9 (8.4-10.2) mg/dL Total Bilirubin 0.7 (0.2-1.3) mg/dL AST 19 (17-59) U/L ALT 13 (6-50) U/L Alkaline Phosphatase 48 (38-126) U/L Total Protein 7.4 (6.3-8.2) g/dL Albumin 4.5 (3.5-5.1) g/dL Lipase 58 (23-300) U/L Discharge Plan Discharge Clinical Impression: Acute epididymitis Patient Disposition: Home Condition: Stable Instructions: Antibiotic Form, Epididymitis (ED) Patient Language: Mongolian Prescriptions: New doxycycline hyclate 100 mg capsule 100 mg PO DAILY Qty: 14 0RF Follow-up/Referrals: Tank Curry MD [Primary Care Provider, [facility]] Time of Disposition: 04:03
[2024-11-24] MEDS: cefTRIAXone 1 GM VIAL 0.5 GM IM (04:16)
[2024-11-24] MEDS: DOXYCYCLINE HYCLATE 100 MG TABLET PO (04:24)
[2024-11-24] MEDS: LIDOCAINE 1% LOCAL INJ 10 ML VIAL (04:42)
[2024-11-24 04:46] VITALS: PULSE 70; RESP 14; O2SAT 99
== END 2024-11-24 04:34 | disposition home or self-care (01) ==
PROVIDERS: Emergency Provider Emergency Medicine; PCP Family Medicine
DX: N45.1 Epididymitis (principal); F41.9 Anxiety disorder, unspecified
CPT/HCPCS: 36415; 74176; 76870; 80053; 83690; 85025; 93976; 96361; 96372; 96374; 96375; 99284; A9270; J0696; J1171; J2003; J2405; J7030